=== PATIENT | female | born 1950 | race American Indian/Alaskan Native ===

== ENCOUNTER 2017-09-10 10:22 | Emergency (ER) | payer MEDICARE, OTHER ==
[2017-09-10] MEDS ORDERED: cefTRIAXone(*) 1 GM in NS 0.9% 50 ML* 50 ML IVPB ONE (11:36)
[2017-09-10] MEDS ORDERED: cefTRIAXone(*) 1 GM ADVAN/BAG ONE (11:49)
[2017-09-10 11:54] LABS: ABS Basophils 0 10^3/ul (0-0.2); ABS Eosinophils 0.2 10^3/ul (0-0.6); ABS Lymphocytes 1.2 10^3/ul (1.0-4.8); ABS Monocytes 0.3 10^3/ul (0-0.8); ABS Neutrophils 3.1 10^3/ul (1.5-7.7); ABS Nucleated RBC 0 10^3/ul; Eosinophil % 3.6 % (0-6); Hematocrit 34 % (35-47); Hemoglobin 11.5 g/dl (12.0-16.0); Lymphocyte % 24.9 % (25-47); Mean Corpuscular HGB Conc 34 g/dl (31-36); Mean Corpuscular Hemoglobin 30 pg (27-31); Mean Corpuscular Volume 87 fL (80-97); Mean Platelet Volume 7.6 um3 (7.4-10.4); Nucleated Red Blood Cells % 0.1; Platelet Count 211 10^3/ul (150-450); Red Blood Count 3.87 10^6/ul (4.00-5.40); Red Cell Distribution Width 15 % (10.5-15); White Blood Count 4.8 10^3/ul (3.5-10.8)
[2017-09-10 12:14] LABS: EGFR Non-African American 46.4 (>60)
--- NOTE | 2017-09-10 12:20 | ED ---
Lower Extremity - HPI Summary HPI Summary: This is leticia Alexander documenting for Dr. Deven Sanford MD. Patient is a 67 y/o F who presents to ED c/o right foot great toe swelling. She dropped a power tool drill on right great toe approximately 2 weeks ago with a laceration. Family took care of injury with first aid at home per nurses report. The swelling went away and seemed to have been healing, but 2 days ago the toe swelled again. Notes a blister on the bottom of right foot. Denies pain. - History of Current Complaint Chief Complaint: EDExtremityLower Stated Complaint: RT TOE INJURY Time Seen by Provider: 09/10/17 11:30 Hx Obtained From: Patient, Family/Data Entry Assistant Mechanism Of Injury: Direct Blow - Dropped power tool drill on toe Onset/Duration: Still Present Severity Currently: None Pain Intensity: 0 Pain Scale Used: 0-10 Numeric Location: Is Discrete @ - right great toe Associated Signs And Symptoms: Positive: Swelling - Allergies/Home Medications Allergies/Adverse Reactions: Allergies Allergy/AdvReac Type Severity Reaction Status Date / Time No Known Allergies Allergy Verified 09/10/17 10:32 PMH/Surg Hx/FS Hx/Imm Hx Endocrine/Hematology History: Reports: Hx Diabetes Neurological History: Reports: Hx Peripheral Neuropathy, Other Neuro Impairments /Disorders - Alzheimer's Dx Infectious Disease History: No Infectious Disease History: Denies: Traveled Outside the [place] in Last 30 Days - Family History Known Family History: Positive: Hypertension, Diabetes, Other - Cancer - Social History Hx Substance Use: Yes Substance Use Type: Reports: Marijuana - for pain Review of Systems Negative: Fever Positive: Edema - at right great toe Positive: Bruising All Other Systems Reviewed And Are Negative: Yes Physical Exam - Summary Physical Exam Summary: VITAL SIGNS: Reviewed. GENERAL: Patient is a well-developed and nourished female who is lying comfortable in the stretcher. Patient is not in any acute respiratory distress. HEAD AND FACE: No signs of trauma. No ecchymosis, hematomas or skull depressions. No sinus tenderness. EYES: PERRLA, EOMI x 2, No injected conjunctiva, no nystagmus. EARS: Hearing grossly intact. Ear canals and tympanic membranes are within normal limits. MOUTH: Oropharynx within normal limits. NECK: Supple, trachea is midline, no adenopathy, no JVD, no carotid bruit, no c- spine tenderness, neck with full ROM. CHEST: Symmetric, no tenderness at palpation LUNGS: Clear to auscultation bilaterally. No wheezing or crackles. CVS: Regular rate and rhythm, S1 and S2 present, no murmurs or gallops appreciated. ABDOMEN: Soft, non-tender. No signs of distention. No rebound no guarding, and no masses palpated. Bowel sounds are normal. EXTREMITIES: Left toe is swollen with some ecchymosis. Able to have normal sensation. No tenderness. FROM in all major joints, no cyanosis or clubbing. NEURO: Alert and oriented x 3. No acute neurological deficits. Speech is normal and follows commands. SKIN: Dry and warm Triage Information Reviewed: Yes Vital Signs On Initial Exam: Initial Vitals Temp Pulse Resp BP Pulse Ox 97.8 F 80 14 143/89 100 09/10/17 10:33 09/10/17 10:33 09/10/17 10:33 09/10/17 10:33 09/10/17 10:33 Vital Signs Reviewed: Yes Diagnostics - Vital Signs Vital Signs Temp Pulse Resp BP Pulse Ox 09/10/17 10:33 97.8 F 80 14 143/89 100 - Laboratory Lab Results: Lab Results 09/10/17 09/10/17 Range/Units 11:44 11:44 WBC 4.8 (3.5-10.8) 10^3/ul RBC 3.87 L (4.00-5.40) 10^6/ul Hgb 11.5 L (12.0-16.0) g/dl Hct 34 L (35-47) % MCV 87 (80-97) fL MCH 30 (27-31) pg MCHC 34 (31-36) g/dl RDW 15 (10.5-15) % Plt Count 211 (150-450) 10^3/ul MPV 7.6 (7.4-10.4) um3 Neut % (Auto) 65.6 (38-83) % Lymph % (Auto) 24.9 L (25-47) % [place] % (Auto) 5.3 (0-7) % Eos % (Auto) 3.6 (0-6) % Baso % (Auto) 0.6 (0-2) % Absolute Neuts (auto) 3.1 (1.5-7.7) 10^3/ul Absolute Lymphs (auto) 1.2 (1.0-4.8) 10^3/ul Absolute Monos (auto) 0.3 (0-0.8) 10^3/ul Absolute Eos (auto) 0.2 (0-0.6) 10^3/ul Absolute Basos (auto) 0 (0-0.2) 10^3/ul Absolute Nucleated RBC 0 10^3/ul Nucleated RBC % 0.1 Sodium 142 (135-145) mmol/L Potassium Pending Chloride 110 (101-111) mmol/L Carbon Dioxide 24 (22-32) mmol/L Anion Gap Pending BUN 20 (6-24) mg/dL Creatinine 1.17 H (0.51-0.95) mg/dL Est GFR ( Amer) 56.2 (>60) Est GFR (Non-Af Amer) 46.4 (>60) BUN/Creatinine Ratio 17.1 (8-20) Glucose 110 H (70-100) mg/dL Calcium 9.3 (8.6-10.3) mg/dL Total Bilirubin 1.00 (0.2-1.0) mg/dL AST Pending ALT 11 (7-52) U/L Alkaline Phosphatase 92 (34-104) U/L C-Reactive Protein 1.93 (<8.01) mg/L Total Protein 7.5 (6.4-8.9) g/dL Albumin 4.1 (3.2-5.2) g/dL Globulin 3.4 (2-4) g/dL Albumin/Globulin Ratio 1.2 (1-3) Result Diagrams: 09/10/17 11:44 09/10/17 11:44 Lab Statement: Any lab studies that have been ordered have been reviewed, and results considered in the medical decision making process. - Radiology Foot X-Ray Radiology Interpretation Completed By: Radiologist - 11:34 IMPRESSION: Nondisplaced nonarticular fracture first proximal phalanx. ED Physician reviewed this report. Re-Evaluation - Re-Evaluation First Eval Re-Evaluation Time: 12:28 Change: Unchanged - Pt says she feels good. Lower Extremity Course/Dx - Course Assessment/Plan: This patient is a 67-year-old female who presents to the emergency department with a chief complaint of having right toe pain. She reports that a couple days ago she dropped a drill on top of her toe and since then the patient is having pain and swelling. She also reports that today she has developed some erythema and she has history of diabetes. In the physical exam the toe is swollen has some erythema and tenderness palpation. She has good capillary refill and she has good sensation. X-ray of the right foot shows proximal phalanx fracture. He does the symptoms that the patient is developing some cellulitis therefore the patient was given Rocephin. I will discharge the patient home with a surgical shoe, a prescription for Bactrim and she declined any pain medications. She will follow-up with orthopedics in the next couple days. The patient and the patients daughter were instructed that if the pain increases the swelling increases and she has any other symptoms the patient should return immediately to the emergency department for further workup and management. The patient and the patients daughter understand and agree. - Diagnoses Provider Diagnoses: Toe fracture, right, Cellulitis Discharge - Sign-Out/Discharge Documenting (check all that apply): Patient Departure - Discharge - Discharge Plan Condition: Stable Disposition: HOME Prescriptions: Sulfamethox/Trimethoprim DS* [Bactrim DS 800/160 TAB*] 1 tab PO BID #20 tab Patient Education Materials: Toe Fracture (ED), Cellulitis (ED) Referrals: Jimenez Shanks MD [Medical Doctor] - 3 Days Additional Instructions: PLEASE RETURN TO ED FOR ANY NEW OR WORSENING SYMPTOMS.
--- NOTE | 2017-09-10 13:31 | RAD ---
Indication: RIGHT foot pain and edema following injury to the first digit one week ago. Previous osteomyelitis. Comparison: No relevant prior exams available on the [facility] PACS for comparison. Technique: AP, lateral, and oblique views LEFT foot. Report: Nondisplaced transverse fracture through the distal metaphysis of the first proximal phalanx. Negative for additional fracture or articular malalignment. 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 Moderate plantar fascia origin bone spur. Soft tissue swelling most prominent about the great toe and over the dorsum of the forefoot. IMPRESSION: #. Nondisplaced nonarticular fracture first proximal phalanx.
[2017-09-10 14:15] VITALS: BP 165/95
== END 2017-09-10 14:05 | disposition home or self-care (01) ==
LOC: ED 10:22
DX: S92.415A Nondisplaced fracture of proximal phalanx of left great toe, initial encounter for closed fracture (principal); W20.8XXA Other cause of strike by thrown, projected or falling object, initial encounter; Y92.9 Unspecified place or not applicable; E11.9 Type 2 diabetes mellitus without complications
CPT/HCPCS: 36415; 80053; 85025; 86140; 96365; 96366; 99283; J0696

== ENCOUNTER 2017-10-17 14:27 | Inpatient (IN) | payer MEDICARE, MEDICAID ==
[2017-10-17] MEDS ORDERED: diPHENhydraMINE IV* 50 MG/ML 1 ml VIAL (BENADRYL) IV PRN (16:03)
[2017-10-17] MEDS ORDERED: Ondansetron INJ* 2 MG/ML VIAL IV PRN (16:03)
[2017-10-17] MEDS ORDERED: Acetaminophen TAB* 325 MG PO PRN (16:03)
--- OUTSIDE RECORDS SUMMARY | 2017-10-17 16:07 | XMS REPORT ---
:1950 External Reference #:[id number] Author Organization [employer] Address [address] [place] [address] Phone [phone] Care Team Providers Name Role Phone Patient's Choice Primary Care Physician Unavailable Payers Type Date Identification Numbers Payment Provider Subscriber Medicare Primary Policy Number: [id number] Medicare Izabella Lopez PayID: [id number] [address] [place] [address] [facility] Policy Number: [id number] Medicaid Izabella Lopez Group Name: 1 1 [address] PayID: [id number] [place] [address] Problems Date Description Provider Status Onset: 09/12/2017 Cellulitis of right lower limb Jimenez Shanks MD Active Onset: 09/12/2017 Closed fracture of phalanx of foot Jimenez Shanks MD Active Social History Description No Information Available Allergies, Adverse Reactions, Alerts Date Description Reaction Status Severity Comments 09/12/2017 NKDA active Medications Medication Date Status Form Strength Qnty SIG Indications Ordering Provider Hydralazine HCL Active Tablets 50mg take one Unknown 000 tablet by mouth three times a day Ranitidine HCL Active Tablets 150mg take one Unknown 000 tablet by mouth twice a day Biotin Active Unknown 000 Vitamin E Active Unknown 000 Doxepin HCL Active Unknown 000 Sertraline HCL Active Unknown 000 Lisinopril Active Unknown 000 Reglan Active Unknown 000 Vitamin B-12 Active Unknown 000 Ondansetron Active Unknown 000 Aspercreme Active Unknown 000 Cholecalciferol Active Unknown 000 Cephalexin Hx Tablets 250mg 40tabs 1 tab L03.115 [facility] 018 - every six Dimitris, hours MD Ramires Vital Signs Date Vital Result Comment 10/03/2017 Height 62 inches 5'2" Weight 136.00 lb Heart Rate 72 /min BP Systolic 126 mmHg BP Diastolic 84 mmHg Body Temperature 97.3 F Pain Level 3 BMI (Body Mass Index) 24.9 kg/m2 09/19/2017 Height 62 inches 5'2" Weight 129.00 lb Heart Rate 72 /min Respiratory Rate 16 /min Body Temperature 97.0 F Pain Level 3 BMI (Body Mass Index) 23.6 kg/m2 09/12/2017 Height 62 inches 5'2" Weight 129.00 lb Heart Rate 68 /min Respiratory Rate 16 /min Body Temperature 96.6 F Pain Level 3 BMI (Body Mass Index) 23.6 kg/m2 Results Description No Information Procedures Description No Information Encounters Type Date Location Provider CPT E/M Dx Office Visit 09/19/2017 [place] [address] S92.411A 9:00a [facility] L03.115 W20.8xxA Office Visit 09/12/2017 8:30a [place] [address] S92.411A [facility] L03.115 Plan of Care 10/03/2017 - Jimenez Shanks MDS92.411D Disp fx of prox phalanx of r great toe, 7thDNew Xrays:MRI Lower Extremity Right W/OFollow up:after testing / imaging is pdghsarkyV32.115 Cellulitis of right lower limb
--- OUTSIDE RECORDS SUMMARY | 2017-10-17 16:07 | XMS REPORT ---
:1950 External Reference #:[id number] Author Organization [employer] Address [address] [facility] [address] [facility] [place] [address] Phone [phone] Care Team Providers Name Role Phone Patient's Choice Primary Care Physician Unavailable Payers Type Date Identification Numbers Payment Provider Subscriber Medicare Primary Policy Number: [id number] Medicare Izabella Lopez PayID: [id number] [address] [place] [address] [facility] Part B Policy Number: [id number] Medicaid Izabella Lopez Group Name: 1 1 [address] PayID: [id number] [place] [address] Problems Date Description Provider Status Onset: 09/12/2017 Cellulitis of right lower limb Jimenez Shanks MD Active Onset: 09/12/2017 Closed fracture of phalanx of foot Jimenez Shanks MD Active Social History Description No Information Available Allergies, Adverse Reactions, Alerts Date Description Reaction Status Severity Comments 09/12/2017 NKDA active Medications Medication Date Status Form Strength Qnty SIG Indications Ordering Provider Cephalexin Hx Tablets 250mg 40tabs 1 tab L03.115 Jimenez 018 - every six Dimitris, hours MD Ramires Hydralazine HCL Active Tablets 50mg take one [...] Active Unknown 000 Cholecalciferol Active Unknown 000 Vital Signs Date Vital Result Comment 09/19/2017 Height 62 inches 5'2" Weight 129.00 [...] Location Provider CPT E/M Dx Office Visit 09/12/2017 [place] [address] S92.411A 8:30a [facility] L03.115 Plan of Care Future Appointment(s):10/03/2017 9:15 am - Jimenez Shanks MD at [facility]09/19/2017 - Jimenez Shanks MDS92.411A Disp fx of proximal phalanx of right great toe, initNew Xrays:Toe Right PrwccK29.115 Cellulitis of right lower limbFollow up:Follow Up: 2 weeks
--- OUTSIDE RECORDS SUMMARY | 2017-10-17 16:07 | XMS REPORT ---
:1950 External Reference #:[id number] Author Organization [employer] Address [address] [place] [address] Phone [phone] Care Team Providers Name Role Phone Patient's Choice Primary Care Physician Unavailable Payers Type Date Identification Numbers Payment Provider Subscriber Medicare Primary Policy Number: [id number] Medicare Izabella Lopez PayID: [id number] [address] [place] [address] [facility] Part [facility] Policy Number: [id number] Medicaid Izabella Lopez Group Name: 1 1 [address] PayID: [id number] [place] [address] Problems Date Description Provider Status Onset: 09/12/2017 Closed fracture of phalanx of foot Jimenez Shanks MD Active Onset: 09/12/2017 Cellulitis of right lower limb Jimenez Shanks MD Active Onset: 10/17/2017 Acute osteomyelitis of ankle and/or foot Jimenez Shanks MD Active Social History [...] Hx Tablets 250mg 40tabs 1 tab L03.115 [facility] 018 - every six Dimitris, hours MD Ramires Vital Signs Date Vital Result Comment 10/17/2017 Height 62 inches 5'2" Weight 136.00 lb Heart Rate 76 /min Respiratory Rate 16 /min Body Temperature 98.5 F Pain Level 0 BMI (Body Mass Index) 24.9 kg/m2 10/03/2017 Height 62 inches 5'2" Weight 136.00 [...] Location Provider CPT E/M Dx Office Visit 10/03/2017 [place] [address] S92.411A 9:15a Of Eric L03.115 W20.8xxA Office Visit 09/19/2017 9:00a [place] [address] S92.411A Of Eric L03.115 W20.8xxA Office Visit 09/12/2017 8:30a [place] [address] S92.411A Of [facility] L03.115 Plan of Care Future Appointment(s):10/24/2017 2:15 pm - Jimenez Shanks MD at [facility]10/19/2017 3:00 pm - LESLIE Rollins at [facility]10/19/2017 3:00 pm - Jimenez Shanks MD at [facility].10/17/2017 - Jimenez Shanks, MDS92.411A Disp fx of proximal phalanx of right great toe, initM86.171 Other acute osteomyelitis, right ankle and footFollow up:Follow Up: 1 week postop
[2017-10-17 17:21] LABS: ABS Basophils 0 10^3/ul (0-0.2); ABS Eosinophils 0.1 10^3/ul (0-0.6); ABS Lymphocytes 2.1 10^3/ul (1.0-4.8); ABS Monocytes 0.6 10^3/ul (0-0.8); ABS Neutrophils 4.5 10^3/ul (1.5-7.7); ABS Nucleated RBC 0 10^3/ul; Eosinophil % 1.2 % (0-6); Hematocrit 32 % (35-47); Hemoglobin 11.2 g/dl (12.0-16.0); Lymphocyte % 28.3 % (25-47); Mean Corpuscular HGB Conc 35 g/dl (31-36); Mean Corpuscular Hemoglobin 30 pg (27-31); Mean Corpuscular Volume 85 fL (80-97); Mean Platelet Volume 7.5 um3 (7.4-10.4); Nucleated Red Blood Cells % 0; Platelet Count 142 10^3/ul (150-450); Red Blood Count 3.71 10^6/ul (4.00-5.40); Red Cell Distribution Width 14 % (10.5-15); White Blood Count 7.3 10^3/ul (3.5-10.8)
[2017-10-17 17:26] LABS: INR 0.94 (0.77-1.02)
[2017-10-17 17:36] LABS: EGFR Non-African American 32.1 (>60)
--- NOTE | 2017-10-17 17:45 | RAD ---
INDICATION: Preoperative evaluation. COMPARISON: There are no relevant prior studies available for comparison. TECHNIQUE: Dual-energy PA and lateral views of the chest were obtained. FINDINGS: The heart is within normal limits in size. Mediastinal and hilar contours appear within normal limits. The lungs are clear. There is blunting of the left costophrenic angle most consistent with pleural thickening less likely a small pleural effusion. IMPRESSION: BLUNTING OF THE LEFT COSTOPHRENIC ANGLE MOST CONSISTENT WITH PLEURAL THICKENING LESS LIKELY A SMALL PLEURAL EFFUSION.
[2017-10-17] MEDS: cefTRIAXone(*) 2 GM in NS 0.9% 100 ML* 100 ML IVPB SCH (18:10)
[2017-10-17] MEDS ORDERED: Dextrose 50% Syringe 50 ML* 25 GM/50 ML SYRINGE IV PUSH PRN (18:16)
[2017-10-17] MEDS ORDERED: Morphine INJ* 2 MG/ML 1 ML SYRINGE (TWO MG - NEW SYRINGE VERSION) IV PRN (18:22)
[2017-10-17] MEDS ORDERED: Potassium Chlor TAB* 20 MEQ TAB.ER PO ONE (18:56)
[2017-10-17] MEDS ORDERED: hydrALAZINE TAB* 25 MG PO SCH (21:00)
[2017-10-17] MEDS: Metoclopramide TAB* 10 MG PO SCH (21:29)
[2017-10-17] MEDS: Famotidine TAB* 20 MG PO SCH (21:30)
[2017-10-17] MEDS: Heparin VIAL(*) 5000 UNITS/ML VIAL (FIVE THOUSAND) SUBCUT SCH (21:30)
--- NOTE | 2017-10-17 21:33 | CONS ---
CC: Dr. Shanks * CONSULTATION REPORT: DATE OF CONSULT: 10/17/17 PATIENT OF: Dr. Jimenez Shanks, Orthopedic Department. REFERRED TO: Iva Frederick MD, attending hospitalist. REASON FOR CONSULT: Preoperative clearance and co-medical management. HISTORY OF PRESENT ILLNESS: Ms. Pack is a 67-year-old female who has a past medical history significant for hypertension, diabetes mellitus, and gastroparesis, who was seen in the emergency room back in 09/10/17 with complaints of right foot great toe swelling and pain. The patient had an injury 2 weeks prior to that presentation dating back to the first week of August when she accidentally dropped a heavy powered tool drill on her right great toe. She had some swelling and a small laceration that she said the family took care of it by doing basic first aid at home. She said that the swelling initially went away and seemed to be healing fine, but then 2 days later, her toes started to be swollen again with a small blister at the bottom of the right foot that continued to drain a clear fluid. She denied any pain, fever or purulent drainage back then. She had an x-ray of her right foot during her emergency room stay that revealed distal phalanx fracture of the right great toe as well as evidence of soft tissue edema consistent with cellulitis. The patient was given a dose of IV Rocephin in the emergency room and then was sent home on a course of Bactrim as an antibiotic and to follow up with Orthopedic in a few days. The patient was seen by the orthopedic provider at [facility] where she was examined and then electively had an MRI done since her swelling and pain continue to be present despite her antibiotic treatment. The patient had an MRI of her foot done on 10/11/17 that revealed diffuse soft tissue swelling involving the entire great toe of her right foot and findings were most consistent with osteomyelitis involving the proximal phalanx of the great toe with possible abscess formation. There was also an metallic artifact along the dorsal distal proximal phalanx that questioned the possibility of a foreign body. Given the finding of her MRI and the fact that her toe pain and swelling did not really improve over the period of 1 month, the decision was made for the patient to be admitted for IV antibiotics and to discuss the possibility of amputation versus debridement in the operating room on a later date. The patient herself reports doing relatively well overall. She had moved to [facility] about 6 months ago to live with her daughter, but originally was born in [place] and lived part of her life in [place] and most recently in [place], [place] prior to moving to [place], [place]. She had primary care physician in [place] that we will try to contact to get some medical records; however, she tells me that she has a history of hypertension, chronic kidney disease and diabetes mellitus for which she has been well controlled with her diet. She occasionally check her blood sugar at home and gives herself 10 units of regular insulin as needed if her sugar is elevated. She denies any history of coronary artery disease or heart attacks. She has never had any history of stroke or hyperlipidemia. Given her medical commodities, we were asked to see the patient to optimize her for possible surgical intervention and to perform preoperative clearance and possible co- medical management in the immediate postoperative period. PAST MEDICAL HISTORY: As mentioned above, significant for: 1. Hypertension. 2. Diabetes mellitus. 3. Gastroesophageal reflux disease. 4. Chronic kidney disease with baseline creatinine at 1.2 to 1.5 per the patient. 5. History of gastroparesis. 6. Anxiety and depression. PAST SURGICAL HISTORY: Significant for: 1. Tubal ligation. 2. Cholecystectomy. CURRENT MEDICATIONS: Her medications at home include: 1. Biotin 1000 mcg p.o. daily. 2. Calcitriol 0.5 mg p.o. daily. 3. Vitamin B12 100 mcg p.o. daily. 4. Doxepin 50 mg capsule p.o. daily. 5. Hydralazine 50 mg p.o. b.i.d. 6. Lidocaine cream 1 application daily as needed for hemorrhoidal pain. 7. Lisinopril 10 mg p.o. daily. 8. Reglan 10 mg p.o. 4 times a day. 9. Zofran 4 mg p.o. daily as needed for nausea. 10. Zantac 150 mg p.o. b.i.d. 11. Zoloft 150 mg p.o. daily. 12. Multivitamin 1 tablet p.o. daily. ALLERGIES: She has no known drug allergies. FAMILY HISTORY: Reviewed and noncontributory. SOCIAL HISTORY: The patient is a nonsmoker, who smoked for approximately 50 years back as a teenager. She denies alcohol intake. She admits to smoking marijuana on occasions to improve her gastroparesis and intermittent nausea and increase her appetite. She is a recent . 2 months ago and recently moved to [facility] 6 months ago from [place] where she lived for number of years. She lists her daughter as healthcare proxy and she wishes to be a full code. REVIEW OF SYSTEMS: See HPI. Otherwise, 14 points review of systems were examined and were essentially negative. PHYSICAL EXAM: General: She is a pleasant, older female, slim, but healthy appearing and in no acute distress or discomfort at the time of consultation. Vitals: Revealed a temperature of 97.6, pulse of 89, respirations of 16 with O2 sat of 99% on room air, blood pressure slightly low at 84/63. HEENT: Head is normocephalic, atraumatic. Sclerae anicteric. PERRLA. EOMs intact. Oropharynx is pink and moist. Neck: Supple. Trachea midline. No cervical adenopathy, thyromegaly, or JVD. Lungs: Clear to auscultation bilaterally. Heart: Regular rate and rhythm. Normal S1 and S2 without rubs, murmurs, or gallops. Back: With normal curvature and no CVA tenderness. Breast Exam: Deferred at this time. Abdomen: Soft, nontender, and nondistended. No hernias , masses, or hepatosplenomegaly. Extremities: Without cyanosis, clubbing, or edema. Examination of the right foot revealed moderate swelling of the big toe extending to the head of the first metatarsal. There is mild tenderness on the dorsal and ventral aspect. There are no open blisters or wounds with no active draining or bleeding noted. There is large area of ecchymosis involving the entire the great toe, but no evidence of crepitus or dry gangrene. Her pedal pulse is 2+ and sensation is intact distally. Neurologic: She is awake, alert , and oriented. Tongue is midline. Motor with equal handgrip bilaterally and sensation is intact throughout. Rectal Exam: Deferred at this time. DIAGNOSTIC STUDIES/LAB DATA: CBC done today with white count of 7000, hemoglobin of 11.2, hematocrit of 32, platelets of 142. Her ESR is pending. Chemistry panel: Sodium 134, potassium 3.1, chloride 101, CO2 23, BUN 27, creatinine 1.6. Her glucose was 184, calcium 8.3. LFTs within normal limits and C-reactive protein normal. ACCESSORY DIAGNOSTIC DATA: As mentioned above, MRI was done on 10/11/17 revealing evidence consistent with osteomyelitis involving the majority of the proximal phalanx of the great toe on the right side with possible abscess formation as well as edema and possible metallic artifact of the dorsal phalanx raising the possibility of a foreign body. IMPRESSION: A 67-year-old female with a past medical history significant for hypertension, diabetes mellitus, gastroparesis and anxiety, who had a traumatic injury to her right great toe approximately a month ago that was treated for cellulitis as an outpatient and unfortunately failed her treatment, who was seen for followup by Orthopedic today and had an MRI last week that showed evidence of osteomyelitis involving the majority of her right great toe and the patient will be admitted under orthopedic services for the following. ASSESSMENT AND PLAN: 1. Right great toe osteomyelitis. Management is per orthopedic team. The patient was started on IV antibiotics using 2 g Ancef every 24 hours. She appears to be afebrile and shows no signs of sepsis or dry gangrene of the toe. It appears to be that she will benefit from going to the operating room more than likely on anticipating possibly amputation of the right great toe and debridement. Again, she understands and wishes to proceed with surgery and we will refer the consent to the orthopedic team and the operating room arrangement as well. 2. Hypertension. She appears to be hypotensive at this time. I will hold her hydralazine and lisinopril and keep monitoring her closely. 3. Diabetes mellitus. The patient appears to control her diabetes at home mostly by diet modification with occasional random glucose checks and insulin intake. We will continue to cover her with lispro sliding scale and do glucose checks q.a.c. and q.h.s. to optimize her glycemic control. 4. Gastroesophageal reflux disease. We will continue her ranitidine treatment. 5. History of gastroparesis. I will continue her Reglan as prescribed. 6. DVT prophylaxis. Based on her age, the patient is high risk and will be covered with heparin for the time being. 7. Code status. She is a full code. TIME SPENT: Approximately 50 minutes were spent consulting on this patient. I have discussed with her all the possible comorbidities and the risk of her surgery. We also checked her revised cardiac risk index and she appears to have a risk percentage of 0.9% for perioperative cardiac event, which makes her a low risk for surgery. We will continue to optimize her blood pressure and glycemic control. I will check an EKG and chest x-ray for preoperative clearance and will follow her up accordingly. Thank you for this consultation. CRUZ HARRIS [id number]/[facility] #: [id number] MORRIS
[2017-10-17] MEDS: Insulin LISPRO* 1 UNITS UNIT SUBCUT SCH (21:34)
[2017-10-18] MEDS: Heparin VIAL(*) 5000 UNITS/ML VIAL (FIVE THOUSAND) SUBCUT SCH ×3 (06:15→21:24)
[2017-10-18 06:20] LABS: ABS Basophils 0 10^3/ul (0-0.2); ABS Eosinophils 0.3 10^3/ul (0-0.6); ABS Lymphocytes 2.6 10^3/ul (1.0-4.8); ABS Monocytes 0.5 10^3/ul (0-0.8); ABS Neutrophils 2.9 10^3/ul (1.5-7.7); ABS Nucleated RBC 0 10^3/ul; Eosinophil % 5.1 % (0-6); Hematocrit 30 % (35-47); Hemoglobin 10.4 g/dl (12.0-16.0); Lymphocyte % 40.9 % (25-47); Mean Corpuscular HGB Conc 35 g/dl (31-36); Mean Corpuscular Hemoglobin 30 pg (27-31); Mean Corpuscular Volume 85 fL (80-97); Mean Platelet Volume 7.8 um3 (7.4-10.4); Nucleated Red Blood Cells % 0.1; Platelet Count 129 10^3/ul (150-450); Red Cell Distribution Width 14 % (10.5-15); White Blood Count 6.3 10^3/ul (3.5-10.8)
[2017-10-18 06:35] LABS: EGFR Non-African American 38.4 (>60)
[2017-10-18] MEDS: Insulin LISPRO* 1 UNITS UNIT SUBCUT SCH ×4 (08:32→21:02)
[2017-10-18] MEDS: Metoclopramide TAB* 10 MG PO SCH ×4 (08:33→21:24)
[2017-10-18] MEDS: Famotidine TAB* 20 MG PO SCH (08:33)
[2017-10-18] MEDS: Calcitriol CAP* 0.25 MCG PO SCH (08:34)
[2017-10-18] MEDS: CMC:Doxepin (NF) 25 MG CAP PO SCH (08:34)
[2017-10-18] MEDS: Sertraline* 100 MG TAB PO SCH (08:34)
[2017-10-18] MEDS: hydrALAZINE TAB* 25 MG PO SCH ×2 (08:35→21:24)
[2017-10-18] MEDS: Lisinopril TAB* 10 MG PO SCH (08:35)
[2017-10-18] MEDS ORDERED: Cyanocobalamin TAB* 500 MCG ONE (08:37)
[2017-10-18] MEDS: Cyanocobalamin TAB* 500 MCG PO SCH (08:39)
[2017-10-18] MEDS ORDERED: Cyanocobalamin TAB* 500 MCG PO SCH (09:00)
--- NOTE | 2017-10-18 12:19 | PN ---
Progress Note - Progress Note Date of Service: 10/18/17 SOAP: Subjective: []Patient seen and examined at bedside. She has no complaints today and denies fever, chills, right great toe pain. Objective: []General: Well appearing, NAD RLE: Right great toe skin intact, mild edema and purple discoloration. No erythema of toe and no proximal tracking erythema. Nontender to gentle palpation today. Cap refill less than two seconds distally. DP2+. Calves supple and nontender without erythema, edema or palpable cords. Assessment: []Right great toe osteomyelitis Plan: []OR tomorrow with Dr Shanks for right great toe amputation, NPO at midnight, hold heparin at midnight for OR tomorrow WBAT Vital Signs Temp 98.2 F 10/18/17 07:23 Pulse 73 10/18/17 07:23 Resp 16 10/18/17 08:35 BP 93/59 10/18/17 07:23 Pulse Ox 97 10/18/17 07:23 Intake & Output 10/17/17 10/18/17 10/18/17 18:59 06:59 18:59 Intake Total 240 250 Output Total 500 Balance 240 -250 Weight 125 lb Intake: Oral 240 250 Output: Urine 500 Laboratory Last Values WBC 6.3 10^3/ul (3.5-10.8) 10/18/17 05:41 RBC 3.50 10^6/ul (4.00-5.40) L 10/18/17 05:41 Hgb 10.4 g/dl (12.0-16.0) L 10/18/17 05:41 Hct 30 % (35-47) L 10/18/17 05:41 MCV 85 fL (80-97) 10/18/17 05:41 MCH 30 pg (27-31) 10/18/17 05:41 MCHC 35 g/dl (31-36) 10/18/17 05:41 RDW 14 % (10.5-15) 10/18/17 05:41 Plt Count 129 10^3/ul (150-450) L 10/18/17 05:41 MPV 7.8 um3 (7.4-10.4) 10/18/17 05:41 Neut % (Auto) 45.6 % (38-83) 10/18/17 05:41 Lymph % (Auto) 40.9 % (25-47) 10/18/17 05:41 Avery % (Auto) 7.9 % (0-7) H 10/18/17 05:41 Eos % (Auto) 5.1 % (0-6) 10/18/17 05:41 Baso % (Auto) 0.5 % (0-2) 10/18/17 05:41 Absolute Neuts (auto) 2.9 10^3/ul (1.5-7.7) 10/18/17 05:41 Absolute Lymphs (auto) 2.6 10^3/ul (1.0-4.8) 10/18/17 05:41 Absolute Monos (auto) 0.5 10^3/ul (0-0.8) 10/18/17 05:41 Absolute Eos (auto) 0.3 10^3/ul (0-0.6) 10/18/17 05:41 Absolute Basos (auto) 0 10^3/ul (0-0.2) 10/18/17 05:41 Absolute Nucleated RBC 0 10^3/ul 10/18/17 05:41 Nucleated RBC % 0.1 10/18/17 05:41 ESR 0 mm/Hr (0-40) 10/17/17 17:02 INR (Anticoag Therapy) 0.94 (0.77-1.02) 10/17/17 17:02 Sodium 135 mmol/L (135-145) 10/18/17 05:41 Potassium 4.1 mmol/L (3.5-5.0) 10/18/17 05:41 Chloride 104 mmol/L (101-111) 10/18/17 05:41 Carbon Dioxide 25 mmol/L (22-32) 10/18/17 05:41 Anion Gap 6 mmol/L (2-11) 10/18/17 05:41 BUN 27 mg/dL (6-24) H 10/18/17 05:41 Creatinine 1.38 mg/dL (0.51-0.95) H 10/18/17 05:41 Est GFR ( Amer) 46.4 (>60) 10/18/17 05:41 Est GFR (Non-Af Amer) 38.4 (>60) 10/18/17 05:41 BUN/Creatinine Ratio 19.6 (8-20) 10/18/17 05:41 Glucose 99 mg/dL (70-100) 10/18/17 05:41 POC Glucose (mg/dL) 141 mg/dL (70-100) H 10/18/17 11:42 Calcium 8.1 mg/dL (8.6-10.3) L 10/18/17 05:41 Total Bilirubin 0.90 mg/dL (0.2-1.0) 10/17/17 17:02 AST 15 U/L (13-39) 10/17/17 17:02 ALT 12 U/L (7-52) 10/17/17 17:02 Alkaline Phosphatase 69 U/L (34-104) 10/17/17 17:02 C-Reactive Protein < 1.00 mg/L (<8.01) 10/17/17 17:02 Total Protein 6.1 g/dL (6.4-8.9) L 10/17/17 17:02 Albumin 3.7 g/dL (3.2-5.2) 10/17/17 17:02 Globulin 2.4 g/dL (2-4) 10/17/17 17:02 Albumin/Globulin Ratio 1.5 (1-3) 10/17/17 17:02
--- NOTE | 2017-10-18 12:54 | CONS ---
DATE OF CONSULTATION: 10/18/2017. REQUESTING PHYSICIAN: Dr. Shanks. CONSULTING SERVICE: Infectious Disease. REASON FOR CONSULTATION: Great toe infection. IMPRESSION: 1. Right great toe acute osteomyelitis in the setting of recent open fracture of the proximal phalanx, could be polymicrobial, usually skin doe, i.e. staph or streptococcus. Not much in the way of a soft tissue infection with it. 2. Diabetes with neuropathy. 3. Gastroparesis. RECOMMENDATIONS: Continue Ceftriaxone 2 gm daily. Given that she is to have a great toe amputation, I do not think she will have need for long-term IV antibiotics. Will await the operative cultures. HISTORY OF PRESENT ILLNESS: This 67-year-old woman with diabetes neuropathy who about five or six weeks ago dropped a heavy power tool on her right great toe, had significant pain and was seen in the ER where she had an x-ray that showed a proximal phalanx fracture. She had some antibiotics. She had a cut over the fracture area which has eventually healed up. She followed with Dr. Shanks and was prescribed Keflex because of swelling and pain that continued. She did not have a whole lot of improvement, so she had an MRI with findings as noted above. She was admitted for antibiotics which she started overnight and is tolerating well. She is to have a great toe amputation tomorrow. PAST MEDICAL HISTORY: 1. Diabetes with peripheral neuropathy. 2. Gastroparesis. 3. Hypertension. 4. Gastroesophageal reflux disease. 5. Chronic kidney disease. 6. Anxiety. 7. Depression. 8. Status post tubal ligation. 9. Status post cholecystectomy. MEDICATIONS: Tylenol, Calcitriol, Doxepin, Famotidine, Heparin subcutaneous injection, Hydralazine, insulin Lispro, Lisinopril, Reglan, Oxycodone as needed , potassium, Ceftriaxone 2 gm a day, Sertraline. ALLERGIES: No known drug allergies. FAMILY HISTORY: No recurrent infections. SOCIAL HISTORY: She lives in [place] with her family. She has no sick contacts. REVIEW OF SYSTEMS: All negative, except as noted above in the history of present illness to a 14 point review. PHYSICAL EXAM: General: She is awake, not in distress. Vital Signs: Temperature 37, heart rate 70, respiratory rate 16, blood pressure 93/59, oxygen saturation 97 percent on room air. Neurologic: She is oriented times three, follows all commands. She has decreased sensation to light touch in both feet. HEENT: There is no conjunctival hemorrhage. Oropharynx without lesions. Neck: Supple without mass. Heart: Regular rate and rhythm without murmurs, rubs, or gallops. Lungs: Clear to auscultation bilaterally. Abdomen : Soft, nontender, nondistended. There are bowel sounds present. Skin: There is no rash or splinter hemorrhage. Musculoskeletal: There is no spine tenderness to palpation. Right great toe: There is diffuse edema, tenderness, dark discoloration. There is no fluctuance. There is 2+ dorsalis pedis pulse. LABORATORY DATA: Creatinine 1.38, CRP is less than 1, white blood cell count 6 , hemoglobin 10, platelets 129. Please see impressions and recommendations as outlined above which I have discussed with CRUZ Fernández. Thank you for asking me to see Ms. Pack in consultation. [id number]/[facility] #: [id number] MTDD
[2017-10-18] MEDS ORDERED: NS 0.9% 500 ML* 500 ML IV ONE ×2 (12:55→12:57)
[2017-10-18] MEDS: cefTRIAXone(*) 2 GM in NS 0.9% 100 ML* 100 ML IVPB SCH (16:28)
--- NOTE | 2017-10-18 18:32 | PN ---
Subjective Date of Service: 10/18/17 Interval History: Mrs. Cuevas reports doing well. She denies chest pain, SOB, palpitations, fever or chills. I was called earlier for low BP, her meds has been on hold, given a bolus of 1,000 ml NS. Noted to have 4-5 blankets while sleeping, denies chills. Appetite good, denies nausea or vomiting. Labs, CXR and EKG reviewed. Seen by orthopedic team, plans for surgery tomorrow. She has no complaints today. Family History: Unchanged from Admission Social History: Unchanged from Admission Past Medical History: Unchanged from Admission Objective Active Medications: Acetaminophen (Tylenol Tab*) 650 mg PO Q6H PRN PRN Reason: PAIN OR TEMPERATURE Calcitriol (Rocaltrol Cap*) 0.5 mcg PO DAILY [facility] Last Admin: 10/18/17 08:34 Dose: 0.5 mcg Cyanocobalamin (Vitamin B12 Tab*) 250 mcg PO DAILY [facility] Last Admin: 10/18/17 08:39 Dose: 250 mcg Dextrose (D50w Syringe 50 Ml*) 12.5 gm IV PUSH .FOR FS < 60 - SS PRN PRN Reason: FS < 60 Diphenhydramine HCl (Benadryl Iv*) 25 mg IV Q6H PRN PRN Reason: PRURITIS Doxepin HCl (Doxepin (Nf)) 50 mg PO DAILY [facility] Last Admin: 10/18/17 08:34 Dose: 50 mg Famotidine (Pepcid Tab*) 20 mg PO DAILY [facility] Last Admin: 10/18/17 08:33 Dose: 20 mg Heparin Sodium (Porcine) (Heparin Vial(*)) 5,000 units SUBCUT Q8HR [facility] Stop: 10/18/17 23:59 Last Admin: 10/18/17 13:38 Dose: 5,000 units Hydralazine HCl (Apresoline Tab*) 50 mg PO BID [facility] Last Admin: 10/18/17 08:35 Dose: Not Given Ceftriaxone Sodium 2 gm/ (Sodium Chloride) 100 mls @ 200 mls/hr IVPB Q24H [facility] Last Admin: 10/18/17 16:28 Dose: 200 mls/hr Lactated Ringer's (Lactated Ringers 1000 Ml Bag*) 1,000 mls @ 75 mls/hr IV PER RATE [facility] Last Admin: 10/18/17 15:34 Dose: 75 mls/hr Insulin Human Lispro (Humalog*) 0 units SUBCUT ACHS [facility]; Protocol Last Admin: 10/18/17 16:26 Dose: Not Given Lisinopril (Prinivil Tab*) 10 mg PO DAILY [facility] Last Admin: 10/18/17 08:35 Dose: Not Given Metoclopramide HCl (Reglan Tab*) 5 mg PO QID [facility] Last Admin: 10/18/17 16:51 Dose: 5 mg Morphine Sulfate (Morphine Inj ((Syringe))*) 2 mg IV Q4H PRN PRN Reason: PAIN - SEVERE Ondansetron HCl (Zofran Inj*) 4 mg IV Q6H PRN PRN Reason: NAUSEA Last Admin: 10/18/17 10:06 Dose: 4 mg Oxycodone/Acetaminophen (Percocet 5/325 Tab*) 1 tab PO Q4H PRN PRN Reason: PAIN Sertraline HCl (Zoloft*) 150 mg PO DAILY [facility] Last Admin: 10/18/17 08:34 Dose: 150 mg Vital Signs - 8 hr 10/18/17 10/18/17 10/18/17 11:59 12:49 15:21 Temperature 98.8 F 98.8 F Pulse Rate 79 78 84 Respiratory 16 16 Rate Blood Pressure 80/37 82/44 104/60 (mmHg) O2 Sat by Pulse 98 Oximetry Oxygen Devices in Use Now: None Appearance: Appears comfortable and in NAD Eyes: No Scleral Icterus, PERRLA Ears/Nose/Mouth/Throat: Clear Oropharnyx, Mucous Membranes Moist Neck: NL Appearance and Movements; NL JVP, Trachea Midline Respiratory: Symmetrical Chest Expansion and Respiratory Effort, Clear to Auscultation Cardiovascular: NL Sounds; No Murmurs; No JVD, RRR Abdominal: NL Sounds; No Tenderness; No Distention Extremities: No Edema Neurological: Alert and Oriented x 3, NL Sensation, NL Muscle Strength and Tone Nutrition: Taking PO's Result Diagrams: 10/18/17 05:41 10/18/17 05:41 Additional Lab and Data: . Microbiology and Other Data: . Diagnostic Imaging: Patient Name: BRIANA CUEVAS Medical Record#: [id number] Ordering Physician: Wanda ARROYO Acct.#: [id number] : 1950 Age: 67 Sex: F Location: SURGICAL STAY UNIT Exam Date: 10/17/17 1615 ADM Status: ADM IN Order Information: CHEST PA & LAT 2 VWS Accession Number: [id number] CPT: 12885 INDICATION: Preoperative evaluation. IMPRESSION: BLUNTING OF THE LEFT COSTOPHRENIC ANGLE MOST CONSISTENT WITH PLEURAL THICKENING LESS LIKELY A SMALL PLEURAL EFFUSION. <Electronically signed by Miguel Olsen MD in OV> 10/17/17 2 EKG Data: EKG INTERPRETATION ECG Report Patient Name BRIANA CUEVAS Birthdate 1950 Sex F Order Number [id number] Date of ECG 10/17/2017 19:01:15 Interpretation Sinus rhythm.normal P axis, V-rate 60- 99 Borderline T wave abnormalities.T/QRS ratio < 1/20 or flat T Prolonged QT interval.QTc >500mS - ABNORMAL ECG - Assess/Plan/Problems-Billing Assessment: A 67 y/o female with PMH HTN, DM, anxiety and gastroparesis, who was admitted from orthopedic office with right great toe osteomylitis, awaiting surgery tomorrow. - Patient Problems (1) Foot osteomyelitis, right Current Visit: Yes Status: Acute Comment: - Management per orthopedic team - NPO past midnight - Right great toe amputation tomorrow, ? primary closure vs wound vac - ID consult appreciated, continue IV antibiotics (2) Hypertension Current Visit: Yes Status: Acute Comment: - Has been hypotensive, without tachycardia or other evidence of sepsis - BP meds on hold - IVF bolus and at continous rate after (3) Diabetes mellitus Current Visit: Yes Status: Acute Comment: - Continue Lispro coverage per sliding scale (4) Anxiety Current Visit: Yes Status: Acute Comment: - Continue Zoloft (5) Gastroparesis Current Visit: Yes Status: Acute Comment: - Continue Reglan and Zofran as needed. - Stable (6) DVT prophylaxis Current Visit: Yes Status: Acute Comment: - SubQ Heparin, on hold past midnight for surgery (7) Full code status Current Visit: Yes Status: Acute Status and Disposition: Inpatient. Anticipate discharge per ortho team when medically stable.
[2017-10-19 06:07] LABS: ABS Basophils 0 10^3/ul (0-0.2); ABS Eosinophils 0.3 10^3/ul (0-0.6); ABS Lymphocytes 2.1 10^3/ul (1.0-4.8); ABS Monocytes 0.4 10^3/ul (0-0.8); ABS Neutrophils 3.1 10^3/ul (1.5-7.7); ABS Nucleated RBC 0 10^3/ul; Eosinophil % 5.8 % (0-6); Hematocrit 28 % (35-47); Hemoglobin 9.8 g/dl (12.0-16.0); Lymphocyte % 35.4 % (25-47); Mean Corpuscular HGB Conc 35 g/dl (31-36); Mean Corpuscular Hemoglobin 30 pg (27-31); Mean Corpuscular Volume 86 fL (80-97); Mean Platelet Volume 7.7 um3 (7.4-10.4); Nucleated Red Blood Cells % 0; Platelet Count 137 10^3/ul (150-450); Red Blood Count 3.25 10^6/ul (4.00-5.40); Red Cell Distribution Width 14 % (10.5-15)
[2017-10-19 06:11] LABS: INR 0.82 (0.77-1.02)
[2017-10-19 06:25] LABS: EGFR Non-African American 45.5 (>60)
[2017-10-19] MEDS: Insulin LISPRO* 1 UNITS UNIT SUBCUT SCH ×4 (08:01→21:05)
[2017-10-19] MEDS: Lisinopril TAB* 10 MG PO SCH (08:15)
[2017-10-19] MEDS: CMC:Doxepin (NF) 25 MG CAP PO SCH (09:31)
[2017-10-19] MEDS: Metoclopramide TAB* 10 MG PO SCH ×4 (09:31→20:55)
[2017-10-19] MEDS: Sertraline* 100 MG TAB PO SCH (09:31)
[2017-10-19] MEDS: hydrALAZINE TAB* 25 MG PO SCH ×2 (09:31→20:55)
[2017-10-19] MEDS: Calcitriol CAP* 0.25 MCG PO SCH (09:31)
[2017-10-19] MEDS: Famotidine TAB* 20 MG PO SCH (09:31)
[2017-10-19] MEDS: Cyanocobalamin TAB* 500 MCG PO SCH (09:32)
[2017-10-19] MEDS ORDERED: Morphine VIAL* 10 MG/ML 1 ML VIAL ONE (14:11)
[2017-10-19] MEDS ORDERED: Ondansetron INJ* 2 MG/ML VIAL ONE (15:12)
[2017-10-19] MEDS ORDERED: Lidocaine 2% PF * 5 ML VIAL ONE (15:12)
[2017-10-19] MEDS ORDERED: Propofol* 10 MG/ML 20 ML BTL IV PUSH ONE (15:12)
[2017-10-19] MEDS ORDERED: Ketorolac INJ* 30 MG/ML 1 ML VIAL ONE (15:12)
[2017-10-19] MEDS ORDERED: KETAMINE HCL* 50 MG/ML 10 ML VIAL ONE (15:13)
[2017-10-19] MEDS ORDERED: Midazolam* 1 MG/ML 5 ML VIAL (5 MG) ONE (15:13)
[2017-10-19] MEDS ORDERED: fentaNYL* 50 MCG/ML 2 ML VIAL (100 MCG VIAL) ONE (15:13)
[2017-10-19] MEDS ORDERED: Bupivacaine 0.25% SDV PF* 10 ML VIAL INJ ONE ×2 (15:24→15:25)
[2017-10-19] MEDS ORDERED: cefTRIAXone(*) 2 GM ADDV.VIAL IVPB ONE (15:35)
[2017-10-19] MEDS ORDERED: EPHEDrine (Pressors)* 50 MG/ML VIAL ONE (16:01)
[2017-10-19] MEDS ORDERED: Naloxone* 0.4 MG/ML 1 ML VIAL IV PRN (16:13)
[2017-10-19] MEDS ORDERED: fentaNYL* 50 MCG/ML 2 ML VIAL (100 MCG VIAL) IV PRN (16:13)
[2017-10-19] MEDS ORDERED: Ondansetron INJ* 2 MG/ML VIAL IV PRN (16:13)
--- NOTE | 2017-10-19 16:33 | PN ---
Subjective Date of Service: 10/19/17 Interval History: Patient was seen and examined at bedside earlier today. Reports doing well, anxious to get her surgery done, so she can eat. Denies chest pain, SOB, fever or chills. Plans for right great toe amputation this afternoon. Family History: Unchanged from Admission Social History: Unchanged from Admission Past Medical History: Unchanged from Admission Objective Active Medications: Acetaminophen (Tylenol Tab*) 650 mg PO Q6H PRN PRN Reason: PAIN OR TEMPERATURE Calcitriol (Rocaltrol Cap*) 0.5 mcg PO DAILY [facility] Last Admin: 10/19/17 09:31 Dose: 0.5 mcg Cyanocobalamin (Vitamin B12 Tab*) 250 mcg PO DAILY [facility] Last Admin: 10/19/17 09:32 Dose: 250 mcg Dextrose (D50w Syringe 50 Ml*) 12.5 gm IV PUSH .FOR FS < 60 - SS PRN PRN Reason: FS < 60 Diphenhydramine HCl (Benadryl Iv*) 25 mg IV Q6H PRN PRN Reason: PRURITIS Doxepin HCl (Doxepin (Nf)) 50 mg PO DAILY [facility] Last Admin: 10/19/17 09:31 Dose: 50 mg Famotidine (Pepcid Tab*) 20 mg PO DAILY [facility] Last Admin: 10/19/17 09:31 Dose: 20 mg Fentanyl Citrate (Fentanyl*) 25 mcg IV Q5M PRN PRN Reason: PAIN - MODERATE Hydralazine HCl (Apresoline Tab*) 50 mg PO BID [facility] Last Admin: 10/19/17 09:31 Dose: 50 mg Ceftriaxone Sodium 2 gm/ (Sodium Chloride) 100 mls @ 200 mls/hr IVPB Q24H [facility] Last Admin: 10/18/17 16:28 Dose: 200 mls/hr Lactated Ringer's (Lactated Ringers 1000 Ml Bag*) 1,000 mls @ 75 mls/hr IV PER RATE [facility] Last Admin: 10/19/17 05:44 Dose: 75 mls/hr Insulin Human Lispro (Humalog*) 0 units SUBCUT ACHS [facility]; Protocol Last Admin: 10/19/17 16:12 Dose: Not Given Metoclopramide HCl (Reglan Tab*) 5 mg PO QID [facility] Last Admin: 10/19/17 13:03 Dose: Not Given Morphine Sulfate (Morphine Inj ((Syringe))*) 2 mg IV Q4H PRN PRN Reason: PAIN - SEVERE Last Admin: 10/19/17 14:19 Dose: 2 mg Naloxone HCl (Narcan*) 0.08 mg IV Q2M PRN PRN Reason: severe induced resp depression Ondansetron HCl (Zofran Inj*) 4 mg IV Q6H PRN PRN Reason: NAUSEA Last Admin: 10/18/17 10:06 Dose: 4 mg Ondansetron HCl (Zofran Inj*) 4 mg IV ONCE PRN PRN Reason: NAUSEA/VOMITING Oxycodone/Acetaminophen (Percocet 5/325 Tab*) 1 tab PO Q4H PRN PRN Reason: PAIN Sertraline HCl (Zoloft*) 150 mg PO DAILY [facility] Last Admin: 10/19/17 09:31 Dose: 150 mg Vital Signs - 8 hr 10/19/17 10/19/17 10/19/17 11:24 12:02 14:19 Temperature 98.4 F Pulse Rate 97 Respiratory 14 16 Rate Blood Pressure 72/27 124/68 (mmHg) O2 Sat by Pulse 95 Oximetry Oxygen Devices in Use Now: None Appearance: Appears comfortable and in NAD. Eyes: No Scleral Icterus, PERRLA Ears/Nose/Mouth/Throat: Clear Oropharnyx, Mucous Membranes Moist Neck: NL Appearance and Movements; NL JVP, Trachea Midline Respiratory: Symmetrical Chest Expansion and Respiratory Effort, Clear to Auscultation Cardiovascular: NL Sounds; No Murmurs; No JVD, RRR Abdominal: NL Sounds; No Tenderness; No Distention Extremities: No Edema Skin: No Rash or Ulcers Neurological: Alert and Oriented x 3 Result Diagrams: 10/19/17 05:41 10/19/17 05:41 Additional Lab and Data: . Microbiology and Other Data: . Diagnostic Imaging: . EKG Data: . Assess/Plan/Problems-Billing Assessment: A 67 y/o female with PMH HTN, DM, anxiety and gastroparesis, who was admitted from orthopedic office with right great toe osteomylitis, awaiting surgery scheduled for this afternoon. - Patient Problems (1) Foot osteomyelitis, right Current Visit: Yes Status: Acute Comment: - Management per orthopedic team - NPO past midnight - Right great toe amputation today, ? primary closure vs wound vac - ID consult appreciated, continue IV antibiotics (2) Hypertension Current Visit: Yes Status: Acute Comment: - Has been hypotensive, without tachycardia or other evidence of sepsis - BP improved today - BP meds on hold - IVF bolus and at continous rate after (3) Diabetes mellitus Current Visit: Yes Status: Acute Comment: - Continue Lispro coverage per sliding scale (4) Anxiety Current Visit: Yes Status: Acute Comment: - Continue Zoloft (5) Gastroparesis Current Visit: Yes Status: Acute Comment: - Continue Reglan and Zofran as needed. - Stable (6) DVT prophylaxis Current Visit: Yes Status: Acute Comment: - SubQ Heparin, on hold past midnight for surgery (7) Full code status Current Visit: Yes Status: Acute Status and Disposition: Inpatient. Anticipate discharge per ortho team when medically stable.
[2017-10-19] MEDS: cefTRIAXone(*) 2 GM in NS 0.9% 100 ML* 100 ML IVPB SCH (18:14)
[2017-10-19] MEDS ORDERED: Morphine INJ* 2 MG/ML 1 ML SYRINGE (TWO MG - NEW SYRINGE VERSION) IV PRN (18:39)
--- NOTE | 2017-10-19 19:56 | OP ---
Operative Report - Blank - Operative Report Date of Operation: 10/19/17 Note: PATIENT: Izabella Lopez DATE OF : 1950 DATE OF SURGERY: 10/19/2017 SURGEON: Jimenez Shanks MD SCIENTIST: CRUZ Fernández, whos assistance was necessary for positioning, retraction, help with instrumentation, and closure. ANESTHESIOLOGIST: Dr. Rodrigues PREOPERATIVE DIAGNOSIS: Right great toe toe osteomyelitis POSTOPERATIVE DIAGNOSIS: Right great toe osteomyelitis OPERATION: Right great toe amputation at the level of the MTP joint ANESTHESIA: MAC IMPLANTS: none TOURNIQUET TIME: Less than 30 minutes with an ankle Esmarch tourniquet. SPECIMENS: Toe to pathology. Culture swabs and bone sent to microbiology. ESTIMATED BLOOD LOSS: minimal COMPLICATIONS: none STATUS: Stable from the operating room to the recovery room. INDICATIONS FOR PROCEDURE: Izabella sustained a right great toe fracture and developed an infection and osteomyelitis. Both operative and non operative treatment alternatives were reviewed. Further, the nature and risks of surgery were reviewed in careful detail. Our discussions regarding the risks of surgery included, but were not limited to, wound infection, wound problems, persistent or worsening infection, nerve injury, neuroma, RSD, persistent symptoms, blood clot, persistent or worsening infection, failure of the surgery, need for further amputation, and even the remote chance of catastrophic complication, including loss of limb. DESCRIPTION OF PROCEDURE: The patient was seen in the preoperative holding unit and informed written consent was obtained. The appropriate extremity was marked. The patient was then brought to the operating room and carefully positioned on the operating room table. Anesthesia was induced. All bony prominences were padded with great care. A chlorhexidine based pre-scrub was performed followed by a chloraprep prep and drape in standard sterile fashion. A surgical safety pause was then conducted in which we confirmed the appropriate patient, extremity, planned procedure, availability of equipment, indication and administration of antibiotics, and DVT prophylaxis in the form of a compression boot on the non- surgical extremity. I began with application of an ankle Esmarch tourniquet. Care was taken not to compress the infected toe. I then made an incision to remove the distal aspect of the toe. I maintained as much healthy soft-tissue length as was possible. The phalanges were dissected out and the toe was amputated at the level of the MTP joint. The bone was of terrible quality. The toe was then sent to pathology. Cultures were also sent. The remaining soft tissues were healthy appearing. There was no purulence expressed from more proximal. We then irrigated copiously after removing the ankle Esmarch tourniquet. The skin edges were pink. We closed with 3-0 monocryl and then 3-0 nylon and then placed a sterile dressing. The patient was then awakened from anesthesia and transferred to the recovery room in stable condition. There were no complications. All needle and sponge counts were correct at the end of the case. ATTESTATION: I attest I was present and scrubbed and performed the critical portions of the procedure myself. POSTOPERATIVE PLAN: The patient may be heel weight-bearing in a post-operative shoe and will follow up will be in two weeks for a wound check, but we will likely leave the sutures in for 3 weeks. Antibiotic treatment will be guided by the infectious disease service.
[2017-10-19] MEDS ORDERED: NS 0.9% 500 ML* 500 ML IV ONE (22:46)
[2017-10-20 05:36] LABS: Hematocrit 28 % (35-47); Hemoglobin 9.7 g/dl (12.0-16.0); Mean Platelet Volume 7.6 um3 (7.4-10.4); Platelet Count 137 10^3/ul (150-450)
[2017-10-20 05:39] LABS: EGFR Non-African American 42.6 (>60)
[2017-10-20] MEDS: Insulin LISPRO* 1 UNITS UNIT SUBCUT SCH ×4 (07:03→21:09)
[2017-10-20] MEDS: Famotidine TAB* 20 MG PO SCH (08:32)
[2017-10-20] MEDS: Metoclopramide TAB* 10 MG PO SCH ×4 (08:32→20:57)
[2017-10-20] MEDS: Sertraline* 100 MG TAB PO SCH (08:32)
[2017-10-20] MEDS: Cyanocobalamin TAB* 500 MCG PO SCH (08:32)
--- NOTE | 2017-10-20 08:34 | RAD ---
INDICATION: The patient is status post right great toe amputation COMPARISON: Foot radiograph dated September 10, 2017 that demonstrates moderate calcified atherosclerosis of the visualized right foot arteries. TECHNIQUE: Ankle-brachial indices and Doppler tracings were obtained of the lower extremities bilaterally. Volume pulse recordings were acquired at the bilateral ankles. REPORT: Ankle-brachial indices: Right: Value (SBP) Index Brachial: 153 Posterior tibialis: 217 1.4 Dorsalis pedis: 211 1.36 Left: Value (SBP) Index Brachial: 155 Posterior tibialis: 208 1.34 Dorsalis pedis: 191 1.23 Digit: Non-compressible Doppler waveforms (acquired at rest): In the interrogated lower extremity arteries, Doppler waveforms are triphasic in all distributions. Volume pulse recordings (acquired at rest): Volume pulse recordings, measured at the bilateral ankles, measure 43 mm on the right and 33 mm in the left IMPRESSION: The elevated ABIs ranging from 1.2-1.4 are most likely spuriously elevated due to calcified atherosclerosis that can be visualized on the foot radiograph dated September 10, 2017. Nevertheless, near normal arterial waveforms are recorded bilaterally which would indicate complete occlusion to be unlikely. If there is strong clinical concern for lower extremity arterial insufficiency superior noninvasive characterization of the arteries could be made with lower extremity arterial duplex sonography.
[2017-10-20] MEDS: Calcitriol CAP* 0.25 MCG PO SCH (08:36)
[2017-10-20] MEDS: CMC:Doxepin (NF) 25 MG CAP PO SCH (08:36)
--- NOTE | 2017-10-20 08:56 | PN ---
Subjective Date of Service: 10/20/17 Interval History: Patient was seen and examined at bedside. Reports feeling very well, eating her breakfast. Denies any foot pain, nausea, vomiting, chest pain or SOB. Just returned from an AB index vascular study, results pending at this time. She has no complaints today. Family History: Unchanged from Admission Social History: Unchanged from Admission Past Medical History: Unchanged from Admission Objective Active Medications: Acetaminophen (Tylenol Tab*) 650 mg PO Q6H PRN PRN Reason: PAIN OR TEMPERATURE Calcitriol (Rocaltrol Cap*) 0.5 mcg PO DAILY [facility] Last Admin: 10/20/17 08:36 Dose: 0.5 mcg Cyanocobalamin (Vitamin B12 Tab*) 250 mcg PO DAILY [facility] Last Admin: 10/20/17 08:32 Dose: 250 mcg Dextrose (D50w Syringe 50 Ml*) 12.5 gm IV PUSH .FOR FS < 60 - SS PRN PRN Reason: FS < 60 Diphenhydramine HCl (Benadryl Iv*) 25 mg IV Q6H PRN PRN Reason: PRURITIS Doxepin HCl (Doxepin (Nf)) 50 mg PO DAILY [facility] Last Admin: 10/20/17 08:36 Dose: 50 mg Famotidine (Pepcid Tab*) 20 mg PO DAILY [facility] Last Admin: 10/20/17 08:32 Dose: 20 mg Heparin Sodium (Porcine) (Heparin Vial(*)) 5,000 units SUBCUT Q8H [facility] Ceftriaxone Sodium 2 gm/ (Sodium Chloride) 100 mls @ 200 mls/hr IVPB Q24H [facility] Last Admin: 10/19/17 18:14 Dose: 200 mls/hr Lactated Ringer's (Lactated Ringers 1000 Ml Bag*) 1,000 mls @ 75 mls/hr IV PER RATE [facility] Last Admin: 10/19/17 05:44 Dose: 75 mls/hr Insulin Human Lispro (Humalog*) 0 units SUBCUT ACHS [facility]; Protocol Last Admin: 10/20/17 07:03 Dose: Not Given Metoclopramide HCl (Reglan Tab*) 5 mg PO QID [facility] Last Admin: 10/20/17 08:32 Dose: 5 mg Morphine Sulfate (Morphine Inj ((Syringe))*) 2 mg IV Q4H PRN PRN Reason: PAIN - SEVERE Last Admin: 10/19/17 14:19 Dose: 2 mg Morphine Sulfate (Morphine Inj ((Syringe))*) 2 mg IV Q2H PRN PRN Reason: PAIN - SEVERE Ondansetron HCl (Zofran Inj*) 4 mg IV Q6H PRN PRN Reason: NAUSEA Last Admin: 10/18/17 10:06 Dose: 4 mg Oxycodone/Acetaminophen (Percocet 5/325 Tab*) 1 tab PO Q4H PRN PRN Reason: PAIN Sertraline HCl (Zoloft*) 150 mg PO DAILY [facility] Last Admin: 10/20/17 08:32 Dose: 150 mg Vital Signs - 8 hr 10/20/17 10/20/17 04:59 05:00 Temperature 97.4 F 97.4 F Pulse Rate 89 Respiratory 16 Rate Blood Pressure 134/69 (mmHg) O2 Sat by Pulse 100 Oximetry Oxygen Devices in Use Now: None Appearance: Sitting up eating breakfast in bed. Appears comfortable and in NAD. Eyes: No Scleral Icterus, PERRLA Ears/Nose/Mouth/Throat: Clear Oropharnyx, Mucous Membranes Moist Neck: NL Appearance and Movements; NL JVP, Trachea Midline Respiratory: Symmetrical Chest Expansion and Respiratory Effort, Clear to Auscultation Cardiovascular: NL Sounds; No Murmurs; No JVD, RRR Abdominal: NL Sounds; No Tenderness; No Distention Extremities: No Edema Skin: No Rash or Ulcers Neurological: Alert and Oriented x 3 Nutrition: Taking PO's Result Diagrams: 10/20/17 05:14 10/20/17 05:14 Additional Lab and Data: . Microbiology and Other Data: . Diagnostic Imaging: . EKG Data: . Assess/Plan/Problems-Billing Assessment: A 67 y/o female with PMH HTN, DM, anxiety and gastroparesis, who was admitted from orthopedic office with right great toe osteomylitis, POD#1 s/p right great toe amputation, clinically stable and doing well. - Patient Problems (1) Foot osteomyelitis, right Current Visit: Yes Status: Acute Comment: - Management per orthopedic team - ID consult appreciated, continue IV antibiotics - PT eval and treatment starting today - Await final tissue cultures to determine outpatient antibiotic therapy options. (2) Hypertension Current Visit: Yes Status: Acute Comment: - Has been hypotensive on admission, without tachycardia or other evidence of sepsis - BP improving - BP meds on hold for now (3) Diabetes mellitus Current Visit: Yes Status: Acute Comment: - Continue Lispro coverage per sliding scale (4) Anxiety Current Visit: Yes Status: Acute Comment: - Continue Zoloft (5) Gastroparesis Current Visit: Yes Status: Acute Comment: - Continue Reglan and Zofran as needed. - Stable (6) DVT prophylaxis Current Visit: Yes Status: Acute Comment: - SubQ Heparin, on hold past midnight for surgery - Resumed post-op (7) Full code status Current Visit: Yes Status: Acute Status and Disposition: Inpatient. Anticipate discharge per ortho team later today or tomorrow.
--- NOTE | 2017-10-20 10:11 | PN ---
Progress Note - Progress Note Date of Service: 10/20/17 SOAP: Subjective: [Pt seen lying in bed. States that she is doing well. Pain is minimal. She denies any chest pain, SOB, nausea, vomiting, ] Objective: [General: A&O x3. NAD MSK, RLE: Dressing is clean dry and intact. Exposed toes have full sensation to light touch. +df/pf. no calf pain or tenderness. ] Vital Signs Temp 98.3 F 10/20/17 08:34 Pulse 83 10/20/17 08:34 Resp 18 10/20/17 08:40 BP 160/85 10/20/17 08:34 Pulse Ox 100 10/20/17 08:34 Intake & Output 10/19/17 10/20/17 10/20/17 18:59 06:59 18:59 Intake Total 967 510 240 Output Total 700 1850 400 Balance 267 -1340 -160 Intake: IV Fluids 967 LR 467 NS 100ML, Ceftriaxone 2G 100 lr 400 Oral 0 510 240 Output: Urine 700 1850 400 Other: # Bowel Movements 0 0 Assessment: [POD 1 Right great toe amputation at the MTP joint ] Plan: [Continue with current pain medication Await cultures and infectious disease consult ]
[2017-10-20] MEDS: Heparin VIAL(*) 5000 UNITS/ML VIAL (FIVE THOUSAND) SUBCUT SCH ×2 (12:31→20:56)
[2017-10-20] MEDS: cefTRIAXone(*) 2 GM in NS 0.9% 100 ML* 100 ML IVPB SCH (16:56)
[2017-10-20] MEDS: oxyCODONE/Acetamin 5/325 MG* TAB PO PRN (21:08)
[2017-10-21] MEDS: Heparin VIAL(*) 5000 UNITS/ML VIAL (FIVE THOUSAND) SUBCUT SCH ×3 (04:25→22:00)
[2017-10-21] MEDS: Insulin LISPRO* 1 UNITS UNIT SUBCUT SCH ×4 (07:53→21:49)
[2017-10-21] MEDS: Calcitriol CAP* 0.25 MCG PO SCH (08:30)
[2017-10-21] MEDS: Metoclopramide TAB* 10 MG PO SCH ×4 (08:30→21:59)
[2017-10-21] MEDS: Famotidine TAB* 20 MG PO SCH (08:30)
[2017-10-21] MEDS: Sertraline* 100 MG TAB PO SCH (08:30)
[2017-10-21] MEDS: CMC:Doxepin (NF) 25 MG CAP PO SCH (08:30)
[2017-10-21] MEDS: Cyanocobalamin TAB* 500 MCG PO SCH (08:30)
--- NOTE | 2017-10-21 10:12 | PN ---
Subjective Date of Service: 10/21/17 Interval History: Patient seen and examined. States she is feeling well. Ambulating with walker in PT, denies SOB, no chest pain, no fevers or chills. Tolerating meals. Family History: Unchanged from Admission Social History: Unchanged from Admission Past Medical History: Unchanged from Admission Objective Active Medications: Acetaminophen (Tylenol Tab*) 650 mg PO Q6H PRN PRN Reason: PAIN OR TEMPERATURE Calcitriol (Rocaltrol Cap*) 0.5 mcg PO DAILY [facility] Last Admin: 10/21/17 08:30 Dose: 0.5 mcg Cyanocobalamin (Vitamin B12 Tab*) 250 mcg PO DAILY [facility] Last Admin: 10/21/17 08:30 Dose: 250 mcg Dextrose (D50w Syringe 50 Ml*) 12.5 gm IV PUSH .FOR FS < 60 - SS PRN PRN Reason: FS < 60 Diphenhydramine HCl (Benadryl Iv*) 25 mg IV Q6H PRN PRN Reason: PRURITIS Doxepin HCl (Doxepin (Nf)) 50 mg PO DAILY [facility] Last Admin: 10/21/17 08:30 Dose: 50 mg Famotidine (Pepcid Tab*) 20 mg PO DAILY [facility] Last Admin: 10/21/17 08:30 Dose: 20 mg Heparin Sodium (Porcine) (Heparin Vial(*)) 5,000 units SUBCUT Q8H [facility] Last Admin: 10/21/17 04:25 Dose: 5,000 units Ceftriaxone Sodium 2 gm/ (Sodium Chloride) 100 mls @ 200 mls/hr IVPB Q24H [facility] Last Admin: 10/20/17 16:56 Dose: 200 mls/hr Lactated Ringer's (Lactated Ringers 1000 Ml Bag*) 1,000 mls @ 75 mls/hr IV PER RATE [facility] Last Admin: 10/19/17 05:44 Dose: 75 mls/hr Insulin Human Lispro (Humalog*) 0 units SUBCUT ACHS [facility]; Protocol Last Admin: 10/21/17 07:53 Dose: Not Given Metoclopramide HCl (Reglan Tab*) 5 mg PO QID [facility] Last Admin: 10/21/17 08:30 Dose: 5 mg Morphine Sulfate (Morphine Inj ((Syringe))*) 2 mg IV Q4H PRN PRN Reason: PAIN - SEVERE Last Admin: 10/19/17 14:19 Dose: 2 mg Morphine Sulfate (Morphine Inj ((Syringe))*) 2 mg IV Q2H PRN PRN Reason: PAIN - SEVERE Ondansetron HCl (Zofran Inj*) 4 mg IV Q6H PRN PRN Reason: NAUSEA Last Admin: 10/18/17 10:06 Dose: 4 mg Oxycodone/Acetaminophen (Percocet 5/325 Tab*) 1 tab PO Q4H PRN PRN Reason: PAIN Last Admin: 10/20/17 21:08 Dose: 1 tab Sertraline HCl (Zoloft*) 150 mg PO DAILY [facility] Last Admin: 10/21/17 08:30 Dose: 150 mg Vital Signs - 8 hr 10/21/17 10/21/17 10/21/17 03:51 07:33 07:50 Temperature 98.0 F 98.2 F Pulse Rate 76 73 Respiratory 16 16 18 Rate Blood Pressure 120/66 139/77 (mmHg) O2 Sat by Pulse 97 99 99 Oximetry Oxygen Devices in Use Now: None Appearance: Alert, NAD Eyes: No Scleral Icterus, PERRLA Ears/Nose/Mouth/Throat: NL Teeth, Lips, Gums, Clear Oropharnyx Neck: NL Appearance and Movements; NL JVP, Trachea Midline Respiratory: Symmetrical Chest Expansion and Respiratory Effort, Clear to Auscultation Cardiovascular: NL Sounds; No Murmurs; No JVD, RRR Abdominal: NL Sounds; No Tenderness; No Distention Extremities: - - dressing right foot CDI Neurological: Alert and Oriented x 3, NL Sensation Nutrition: Taking PO's Result Diagrams: 10/20/17 05:14 10/20/17 05:14 Additional Lab and Data: . Microbiology and Other Data: . Diagnostic Imaging: . EKG Data: . Assess/Plan/Problems-Billing Assessment: This is a 67 y/o female with PMH HTN, DM, anxiety and gastroparesis, who was admitted from orthopedic office with right great toe osteomylitis, currently s/ p right great toe amputation. - Patient Problems (1) Foot osteomyelitis, right Code(s): M86.9 - OSTEOMYELITIS, UNSPECIFIED SNOMED Code(s): 2962857398169971 Comment: - Likely 2/2 peripheral neuropathy/DM - POD2 right great toe amputation - POC as per orthopedics - Pain control, bowel regimen - OOB with PT/OT - Antibiotics as per ID (2) Anxiety Code(s): F41.9 - ANXIETY DISORDER, UNSPECIFIED SNOMED Code(s): 78290564 Comment: - Continue Zoloft daily (3) Diabetes mellitus Code(s): E11.9 - TYPE 2 DIABETES MELLITUS WITHOUT COMPLICATIONS SNOMED Code(s) : 15305351 Comment: - Continue Lispro coverage per sliding scale, BG stable (4) Gastroparesis Code(s): K31.84 - GASTROPARESIS SNOMED Code(s): 494633762 Comment: - Continue Reglan and Zofran PRN - Stable, tolerating meals (5) Hypertension Code(s): I10 - ESSENTIAL (PRIMARY) HYPERTENSION SNOMED Code(s): 13583334 Comment: - Has been hypotensive on admission, without tachycardia or other evidence of sepsis - Hold BP meds for now and continue to monitor (6) DVT prophylaxis Code(s): XAD0439 - SNOMED Code(s): 459964981 Comment: - HSQ (7) Full code status Code(s): Z78.9 - OTHER SPECIFIED HEALTH STATUS SNOMED Code(s): 000180582 Status and Disposition: Dispo as per ortho.
[2017-10-21] MEDS: cefTRIAXone(*) 2 GM in NS 0.9% 100 ML* 100 ML IVPB SCH (17:12)
--- NOTE | 2017-10-21 19:45 | PN ---
Progress Note - Progress Note Date of Service: 10/21/17 SOAP: Subjective: Pt sitting comfortably in chair. No complaint of pain. No new c/o. Denies F/C, N /V. Vital Signs: Temp Pulse Resp BP Pulse Ox 98.7 F 76 16 106/54 96 10/21/17 16:04 10/21/17 16:04 10/21/17 16:04 10/21/17 16:04 10/21/17 16:04 Laboratory Last Values WBC 6.0 10^3/ul (3.5-10.8) 10/19/17 05:41 RBC 3.25 10^6/ul (4.00-5.40) L 10/19/17 05:41 Hgb 9.7 g/dl (12.0-16.0) L 10/20/17 05:14 Hct 28 % (35-47) L 10/20/17 05:14 MCV 86 fL (80-97) 10/19/17 05:41 MCH 30 pg (27-31) 10/19/17 05:41 MCHC 35 g/dl (31-36) 10/19/17 05:41 RDW 14 % (10.5-15) 10/19/17 05:41 Plt Count 137 10^3/ul (150-450) L 10/20/17 05:14 MPV 7.6 um3 (7.4-10.4) 10/20/17 05:14 Neut % (Auto) 52.1 % (38-83) 10/19/17 05:41 Lymph % (Auto) 35.4 % (25-47) 10/19/17 05:41 Giles % (Auto) 6.3 % (0-7) 10/19/17 05:41 Eos % (Auto) 5.8 % (0-6) 10/19/17 05:41 Baso % (Auto) 0.4 % (0-2) 10/19/17 05:41 Absolute Neuts (auto) 3.1 10^3/ul (1.5-7.7) 10/19/17 05:41 Absolute Lymphs (auto) 2.1 10^3/ul (1.0-4.8) 10/19/17 05:41 Absolute Monos (auto) 0.4 10^3/ul (0-0.8) 10/19/17 05:41 Absolute Eos (auto) 0.3 10^3/ul (0-0.6) 10/19/17 05:41 Absolute Basos (auto) 0 10^3/ul (0-0.2) 10/19/17 05:41 Absolute Nucleated RBC 0 10^3/ul 10/19/17 05:41 Nucleated RBC % 0 10/19/17 05:41 ESR 0 mm/Hr (0-40) 10/17/17 17:02 INR (Anticoag Therapy) 0.82 (0.77-1.02) 10/19/17 05:41 Sodium 139 mmol/L (135-145) 10/20/17 05:14 Potassium 4.5 mmol/L (3.5-5.0) 10/20/17 05:14 Chloride 109 mmol/L (101-111) 10/20/17 05:14 Carbon Dioxide 24 mmol/L (22-32) 10/20/17 05:14 Anion Gap 6 mmol/L (2-11) 10/20/17 05:14 BUN 21 mg/dL (6-24) 10/20/17 05:14 Creatinine 1.26 mg/dL (0.51-0.95) H 10/20/17 05:14 Est GFR ( Amer) 51.6 (>60) 10/20/17 05:14 Est GFR (Non-Af Amer) 42.6 (>60) 10/20/17 05:14 BUN/Creatinine Ratio 16.7 (8-20) 10/20/17 05:14 Glucose 98 mg/dL (70-100) 10/20/17 05:14 POC Glucose (mg/dL) 102 mg/dL (70-100) H 10/21/17 11:59 Calcium 8.3 mg/dL (8.6-10.3) L 10/20/17 05:14 Total Bilirubin 0.90 mg/dL (0.2-1.0) 10/17/17 17:02 AST 15 U/L (13-39) 10/17/17 17:02 ALT 12 U/L (7-52) 10/17/17 17:02 Alkaline Phosphatase 69 U/L (34-104) 10/17/17 17:02 C-Reactive Protein < 1.00 mg/L (<8.01) 10/17/17 17:02 Total Protein 6.1 g/dL (6.4-8.9) L 10/17/17 17:02 Albumin 3.7 g/dL (3.2-5.2) 10/17/17 17:02 Globulin 2.4 g/dL (2-4) 10/17/17 17:02 Albumin/Globulin Ratio 1.5 (1-3) 10/17/17 17:02 Objective: Dressing C/D/I, NVI Assessment: s/p right great toe AMP POD#2 Plan: Pain control continue Abx - Appreciate ID input
[2017-10-21] MEDS: oxyCODONE/Acetamin 5/325 MG* TAB PO PRN (21:59)
[2017-10-22] MEDS: Heparin VIAL(*) 5000 UNITS/ML VIAL (FIVE THOUSAND) SUBCUT SCH ×3 (06:41→21:19)
[2017-10-22] MEDS: Insulin LISPRO* 1 UNITS UNIT SUBCUT SCH ×4 (08:28→21:19)
[2017-10-22] MEDS ORDERED: Polyethylene Glycol 3350* 17 GM PACKET PO PRN (08:36)
[2017-10-22] MEDS: Famotidine TAB* 20 MG PO SCH (09:22)
[2017-10-22] MEDS: Calcitriol CAP* 0.25 MCG PO SCH (09:22)
[2017-10-22] MEDS: Cyanocobalamin TAB* 500 MCG PO SCH (09:22)
[2017-10-22] MEDS: Sertraline* 100 MG TAB PO SCH (09:22)
[2017-10-22] MEDS: CMC:Doxepin (NF) 25 MG CAP PO SCH (09:23)
[2017-10-22] MEDS: Docusate CAP* 100 MG PO SCH ×2 (09:23→21:17)
[2017-10-22] MEDS: Metoclopramide TAB* 10 MG PO SCH ×4 (09:26→21:18)
--- NOTE | 2017-10-22 10:10 | PN ---
Progress Note - Progress Note Date of Service: 10/22/17 SOAP: Subjective: Pt seen lying in bed. States that she is doing well. Pain is minimal. She denies any chest pain, SOB, nausea, vomiting, ] Objective: [General: A&O x3. NAD MSK, RLE: Dressing is clean dry and intact. Exposed toes have full sensation to light touch. +df/pf. no calf pain or tenderness. ] Vital Signs Temp 98.2 F 10/22/17 07:50 Pulse 77 10/22/17 07:50 Resp 16 10/22/17 08:00 BP 126/72 10/22/17 07:50 Pulse Ox 99 10/22/17 07:50 Intake & Output 10/21/17 10/22/17 10/22/17 18:59 06:59 18:59 Intake Total 1120 850 Output Total 550 500 Balance 570 350 Intake: Oral 1120 850 Output: Urine 550 500 Assessment: [POD 3 Right great toe amputation at the MTP joint ] Plan: [Continue with current pain medication Await cultures to guide treatment Pt has stage 3 kidney disease
--- NOTE | 2017-10-22 12:42 | PN ---
Subjective Date of Service: 10/22/17 Interval History: Patient seen and examined. Just woke up, appears sleepy but appropriate. States pain is well controlled and she is ambulating. c/o constipation. Denies SOb, no chest pain, no fevers or chills. Family History: Unchanged from Admission Social History: Unchanged from Admission Past Medical History: Unchanged from Admission Objective Active Medications: Acetaminophen (Tylenol Tab*) 650 mg PO Q6H PRN PRN Reason: PAIN OR TEMPERATURE Calcitriol (Rocaltrol Cap*) 0.5 mcg PO DAILY [facility] Last Admin: 10/22/17 09:22 Dose: 0.5 mcg Cyanocobalamin (Vitamin B12 Tab*) 250 mcg PO DAILY [facility] Last Admin: 10/22/17 09:22 Dose: 250 mcg Dextrose (D50w Syringe 50 Ml*) 12.5 gm IV PUSH .FOR FS < 60 - SS PRN PRN Reason: FS < 60 Diphenhydramine HCl (Benadryl Iv*) 25 mg IV Q6H PRN PRN Reason: PRURITIS Docusate Sodium (Colace Cap*) 100 mg PO BID [facility] Last Admin: 10/22/17 09:23 Dose: 100 mg Doxepin HCl (Doxepin (Nf)) 50 mg PO DAILY [facility] Last Admin: 10/22/17 09:23 Dose: 50 mg Famotidine (Pepcid Tab*) 20 mg PO DAILY [facility] Last Admin: 10/22/17 09:22 Dose: 20 mg Heparin Sodium (Porcine) (Heparin Vial(*)) 5,000 units SUBCUT Q8HR [facility] Last Admin: 10/22/17 06:41 Dose: 5,000 units Ceftriaxone Sodium 2 gm/ (Sodium Chloride) 100 mls @ 200 mls/hr IVPB Q24H [facility] Stop: 10/22/17 16:59 Last Admin: 10/21/17 17:12 Dose: 200 mls/hr Lactated Ringer's (Lactated Ringers 1000 Ml Bag*) 1,000 mls @ 75 mls/hr IV PER RATE [facility] Last Admin: 10/19/17 05:44 Dose: 75 mls/hr Ceftriaxone Sodium 2 gm/ (Sodium Chloride) 50 mls @ 100 mls/hr IVPB Q24H [facility] Insulin Human Lispro (Humalog*) 0 units SUBCUT ACHS [facility]; Protocol Last Admin: 10/22/17 11:31 Dose: Not Given Metoclopramide HCl (Reglan Tab*) 5 mg PO QID [facility] Last Admin: 10/22/17 09:26 Dose: 5 mg Morphine Sulfate (Morphine Inj ((Syringe))*) 2 mg IV Q4H PRN PRN Reason: PAIN - SEVERE Last Admin: 10/19/17 14:19 Dose: 2 mg Morphine Sulfate (Morphine Inj ((Syringe))*) 2 mg IV Q2H PRN PRN Reason: PAIN - SEVERE Ondansetron HCl (Zofran Inj*) 4 mg IV Q6H PRN PRN Reason: NAUSEA Last Admin: 10/18/17 10:06 Dose: 4 mg Oxycodone/Acetaminophen (Percocet 5/325 Tab*) 1 tab PO Q4H PRN PRN Reason: PAIN Last Admin: 10/21/17 21:59 Dose: 1 tab Polyethylene Glycol/Electrolytes (Miralax*) 17 gm PO DAILY PRN PRN Reason: CONSTIPATION Last Admin: 10/22/17 09:21 Dose: 17 gm Sertraline HCl (Zoloft*) 150 mg PO DAILY [facility] Last Admin: 10/22/17 09:22 Dose: 150 mg Vital Signs - 8 hr 10/22/17 10/22/17 07:50 08:00 Temperature 98.2 F Pulse Rate 77 Respiratory 14 16 Rate Blood Pressure 126/72 (mmHg) O2 Sat by Pulse 99 Oximetry Oxygen Devices in Use Now: None Appearance: alert, NAD Eyes: No Scleral Icterus, PERRLA Ears/Nose/Mouth/Throat: NL Teeth, Lips, Gums, Mucous Membranes Moist Neck: NL Appearance and Movements; NL JVP, Trachea Midline Respiratory: Symmetrical Chest Expansion and Respiratory Effort, Clear to Auscultation Cardiovascular: NL Sounds; No Murmurs; No JVD, RRR, No Edema Abdominal: NL Sounds; No Tenderness; No Distention Extremities: No Edema Skin: No Rash or Ulcers, No Nodules or Sclerosis, - - dressing CDI Neurological: Alert and Oriented x 3, NL Sensation, NL Muscle Strength and Tone Nutrition: Taking PO's Result Diagrams: 10/20/17 05:14 10/20/17 05:14 Additional Lab and Data: . Microbiology and Other Data: . Diagnostic Imaging: . EKG Data: . Assess/Plan/Problems-Billing Assessment: This is a 67 y/o female with PMH HTN, DM, anxiety and gastroparesis, who was admitted from orthopedic office with right great toe osteomylitis, currently s/ p right great toe amputation. - Patient Problems (1) Foot osteomyelitis, right Code(s): M86.9 - OSTEOMYELITIS, UNSPECIFIED SNOMED Code(s): 2540806441333695 Comment: - Likely 2/2 peripheral neuropathy/DM - POD3 right great toe amputation - POC as per orthopedics - Pain control, bowel regimen - OOB with PT/OT - Antibiotics as per ID, currently ceftriaxone, wound cultures with no significant growth (2) Anxiety Code(s): F41.9 - ANXIETY DISORDER, UNSPECIFIED SNOMED Code(s): 16005671 Comment: - Continue Zoloft daily (3) Diabetes mellitus Code(s): E11.9 - TYPE 2 DIABETES MELLITUS WITHOUT COMPLICATIONS SNOMED Code(s) : 93879888 Comment: - Continue Lispro coverage per sliding scale, BG stable (4) Gastroparesis Code(s): K31.84 - GASTROPARESIS SNOMED Code(s): 697450462 Comment: - Continue Reglan and Zofran PRN - Stable, tolerating meals (5) Hypertension Code(s): I10 - ESSENTIAL (PRIMARY) HYPERTENSION SNOMED Code(s): 63303451 Comment: - Has been hypotensive on admission, without tachycardia or other evidence of sepsis - Normotensive today, can likely restart BP meds at discharge, or sooner if needed (6) DVT prophylaxis Code(s): TJE3875 - SNOMED Code(s): 859468218 Comment: - HSQ (7) Full code status Code(s): Z78.9 - OTHER SPECIFIED HEALTH STATUS SNOMED Code(s): 281225746 Status and Disposition: Dispo as per ortho.
[2017-10-22] MEDS: NS 0.9% IVPB SCH (16:59)
[2017-10-22] MEDS: CEFTRIAXONE IVPB SCH (16:59)
[2017-10-22] MEDS: oxyCODONE/Acetamin 5/325 MG* TAB PO PRN (21:17)
[2017-10-23] MEDS: Heparin VIAL(*) 5000 UNITS/ML VIAL (FIVE THOUSAND) SUBCUT SCH ×3 (06:08→20:58)
[2017-10-23] MEDS: Insulin LISPRO* 1 UNITS UNIT SUBCUT SCH ×4 (08:08→20:57)
[2017-10-23] MEDS: Famotidine TAB* 20 MG PO SCH (10:21)
[2017-10-23] MEDS: Sertraline* 100 MG TAB PO SCH (10:22)
[2017-10-23] MEDS: Metoclopramide TAB* 10 MG PO SCH ×4 (10:23→20:57)
[2017-10-23] MEDS: Docusate CAP* 100 MG PO SCH ×2 (10:23→20:57)
[2017-10-23] MEDS: Cyanocobalamin TAB* 500 MCG PO SCH (10:24)
[2017-10-23] MEDS: CMC:Doxepin (NF) 25 MG CAP PO SCH (10:25)
[2017-10-23] MEDS: Calcitriol CAP* 0.25 MCG PO SCH (10:26)
--- NOTE | 2017-10-23 10:29 | PN ---
Progress Note - Progress Note Date of Service: 10/23/17 SOAP: Subjective: Pt seen and examined at bedside. No complaint of pain. Denies CP, SOB, F/C. Vital Signs: Temp Pulse Resp BP Pulse Ox 98.2 F 70 16 137/77 98 10/23/17 07:12 10/23/17 07:12 10/23/17 07:12 10/23/17 07:12 10/23/17 07:12 Laboratory Last Values WBC 6.0 10^3/ul (3.5-10.8) 10/19/17 05:41 RBC 3.25 10^6/ul (4.00-5.40) L 10/19/17 05:41 Hgb 9.7 g/dl (12.0-16.0) L 10/20/17 05:14 Hct 28 % (35-47) L 10/20/17 05:14 MCV 86 fL (80-97) 10/19/17 05:41 MCH 30 pg (27-31) 10/19/17 05:41 MCHC 35 g/dl (31-36) 10/19/17 05:41 RDW 14 % (10.5-15) 10/19/17 05:41 Plt Count 137 10^3/ul (150-450) L 10/20/17 05:14 MPV 7.6 um3 (7.4-10.4) 10/20/17 05:14 Neut % (Auto) 52.1 % (38-83) 10/19/17 05:41 Lymph % (Auto) 35.4 % (25-47) 10/19/17 05:41 [place] % (Auto) 6.3 % (0-7) 10/19/17 05:41 Eos % (Auto) 5.8 % (0-6) 10/19/17 05:41 Baso % (Auto) 0.4 % (0-2) 10/19/17 05:41 Absolute Neuts (auto) 3.1 10^3/ul (1.5-7.7) 10/19/17 05:41 Absolute Lymphs (auto) 2.1 10^3/ul (1.0-4.8) 10/19/17 05:41 Absolute Monos (auto) 0.4 10^3/ul (0-0.8) 10/19/17 05:41 Absolute Eos (auto) 0.3 10^3/ul (0-0.6) 10/19/17 05:41 Absolute Basos (auto) 0 10^3/ul (0-0.2) 10/19/17 05:41 Absolute Nucleated RBC 0 10^3/ul 10/19/17 05:41 Nucleated RBC % 0 10/19/17 05:41 ESR 0 mm/Hr (0-40) 10/17/17 17:02 INR (Anticoag Therapy) 0.82 (0.77-1.02) 10/19/17 05:41 Sodium 139 mmol/L (135-145) 10/20/17 05:14 Potassium 4.5 mmol/L (3.5-5.0) 10/20/17 05:14 Chloride 109 mmol/L (101-111) 10/20/17 05:14 Carbon Dioxide 24 mmol/L (22-32) 10/20/17 05:14 Anion Gap 6 mmol/L (2-11) 10/20/17 05:14 BUN 21 mg/dL (6-24) 10/20/17 05:14 Creatinine 1.26 mg/dL (0.51-0.95) H 10/20/17 05:14 Est GFR ( Amer) 51.6 (>60) 10/20/17 05:14 Est GFR (Non-Af Amer) 42.6 (>60) 10/20/17 05:14 BUN/Creatinine Ratio 16.7 (8-20) 10/20/17 05:14 Glucose 98 mg/dL (70-100) 10/20/17 05:14 POC Glucose (mg/dL) 109 mg/dL (70-100) H 10/23/17 07:33 Calcium 8.3 mg/dL (8.6-10.3) L 10/20/17 05:14 Total Bilirubin 0.90 mg/dL (0.2-1.0) 10/17/17 17:02 AST 15 U/L (13-39) 10/17/17 17:02 ALT 12 U/L (7-52) 10/17/17 17:02 Alkaline Phosphatase 69 U/L (34-104) 10/17/17 17:02 C-Reactive Protein < 1.00 mg/L (<8.01) 10/17/17 17:02 Total Protein 6.1 g/dL (6.4-8.9) L 10/17/17 17:02 Albumin 3.7 g/dL (3.2-5.2) 10/17/17 17:02 Globulin 2.4 g/dL (2-4) 10/17/17 17:02 Albumin/Globulin Ratio 1.5 (1-3) 10/17/17 17:02 Objective: Dressing C/D/I. Calves soft, nontender. NVI Assessment: s/p Right great toe amp POD#4 Plan: OOB WBAT on heel Continue abx Pain control
--- NOTE | 2017-10-23 16:45 | PN ---
Subjective Date of Service: 10/23/17 Interval History: Patient seen and examined. Pain well tolerated, denies fevers or chills. No acute overnight events. Family History: Unchanged from Admission Social History: Unchanged from Admission Past Medical History: Unchanged from Admission Objective Active Medications: Acetaminophen (Tylenol Tab*) 650 mg PO Q6H PRN PRN Reason: PAIN OR TEMPERATURE Calcitriol (Rocaltrol Cap*) 0.5 mcg PO DAILY [facility] Last Admin: 10/23/17 10:26 Dose: 0.5 mcg Cyanocobalamin (Vitamin B12 Tab*) 250 mcg PO DAILY [facility] Last Admin: 10/23/17 10:24 Dose: 250 mcg Dextrose (D50w Syringe 50 Ml*) 12.5 gm IV PUSH .FOR FS < 60 - SS PRN PRN Reason: FS < 60 Diphenhydramine HCl (Benadryl Iv*) 25 mg IV Q6H PRN PRN Reason: PRURITIS Docusate Sodium (Colace Cap*) 100 mg PO BID [facility] Last Admin: 10/23/17 10:23 Dose: 100 mg Doxepin HCl (Doxepin (Nf)) 50 mg PO DAILY [facility] Last Admin: 10/23/17 10:25 Dose: 50 mg Famotidine (Pepcid Tab*) 20 mg PO DAILY [facility] Last Admin: 10/23/17 10:21 Dose: 20 mg Heparin Sodium (Porcine) (Heparin Vial(*)) 5,000 units SUBCUT Q8HR [facility] Last Admin: 10/23/17 13:24 Dose: 5,000 units Lactated Ringer's (Lactated Ringers 1000 Ml Bag*) 1,000 mls @ 75 mls/hr IV PER RATE [facility] Last Admin: 10/19/17 05:44 Dose: 75 mls/hr Ceftriaxone Sodium 2 gm/ (Sodium Chloride) 50 mls @ 100 mls/hr IVPB Q24H [facility] Last Admin: 10/22/17 16:59 Dose: 100 mls/hr Insulin Human Lispro (Humalog*) 0 units SUBCUT ACHS [facility]; Protocol Last Admin: 10/23/17 13:17 Dose: Not Given Metoclopramide HCl (Reglan Tab*) 5 mg PO QID [facility] Last Admin: 10/23/17 13:24 Dose: 5 mg Morphine Sulfate (Morphine Inj ((Syringe))*) 2 mg IV Q4H PRN PRN Reason: PAIN - SEVERE Last Admin: 10/19/17 14:19 Dose: 2 mg Morphine Sulfate (Morphine Inj ((Syringe))*) 2 mg IV Q2H PRN PRN Reason: PAIN - SEVERE Ondansetron HCl (Zofran Inj*) 4 mg IV Q6H PRN PRN Reason: NAUSEA Last Admin: 10/18/17 10:06 Dose: 4 mg Oxycodone/Acetaminophen (Percocet 5/325 Tab*) 1 tab PO Q4H PRN PRN Reason: PAIN Last Admin: 10/22/17 21:17 Dose: 1 tab Polyethylene Glycol/Electrolytes (Miralax*) 17 gm PO DAILY PRN PRN Reason: CONSTIPATION Last Admin: 10/22/17 09:21 Dose: 17 gm Sertraline HCl (Zoloft*) 150 mg PO DAILY [facility] Last Admin: 10/23/17 10:22 Dose: 150 mg Vital Signs - 8 hr 10/23/17 11:19 Temperature 98.0 F Pulse Rate 76 Respiratory 14 Rate Blood Pressure 120/75 (mmHg) O2 Sat by Pulse 100 Oximetry Oxygen Devices in Use Now: None Appearance: alert, NAD Eyes: No Scleral Icterus, PERRLA Ears/Nose/Mouth/Throat: NL Teeth, Lips, Gums Neck: NL Appearance and Movements; NL JVP, Trachea Midline Respiratory: Symmetrical Chest Expansion and Respiratory Effort, Clear to Auscultation Cardiovascular: NL Sounds; No Murmurs; No JVD, RRR, No Edema Extremities: No Edema, No Clubbing, Cyanosis Neurological: Alert and Oriented x 3, NL Sensation Nutrition: Taking PO's Result Diagrams: 10/20/17 05:14 10/20/17 05:14 Additional Lab and Data: . Microbiology and Other Data: . Diagnostic Imaging: . EKG Data: . Assess/Plan/Problems-Billing Assessment: This is a 67 y/o female with PMH HTN, DM, anxiety and gastroparesis, who was admitted from orthopedic office with right great toe osteomylitis, currently s/ p right great toe amputation. - Patient Problems (1) Foot osteomyelitis, right Code(s): M86.9 - OSTEOMYELITIS, UNSPECIFIED SNOMED Code(s): 2579887936300873 Comment: - Likely 2/2 peripheral neuropathy/DM - POD4 right great toe amputation - POC as per orthopedics - Pain control, bowel regimen - OOB with PT/OT - Antibiotics as per ID, currently ceftriaxone, wound cultures with no significant growth, will defer to ID for continued antibiotics at discharge (2) Anxiety Code(s): F41.9 - ANXIETY DISORDER, UNSPECIFIED SNOMED Code(s): 68225029 Comment: - Continue Zoloft daily (3) Diabetes mellitus Code(s): E11.9 - TYPE 2 DIABETES MELLITUS WITHOUT COMPLICATIONS SNOMED Code(s) : 70223709 Comment: - Continue Lispro coverage per sliding scale, BG stable (4) Gastroparesis Code(s): K31.84 - GASTROPARESIS SNOMED Code(s): 823649797 Comment: - Continue Reglan and Zofran PRN - Stable, tolerating meals (5) Hypertension Code(s): I10 - ESSENTIAL (PRIMARY) HYPERTENSION SNOMED Code(s): 96368474 Comment: - BP stable, may restart meds at discharge. (6) DVT prophylaxis Code(s): GMG1371 - SNOMED Code(s): 805190806 Comment: - HSQ (7) Full code status Code(s): Z78.9 - OTHER SPECIFIED HEALTH STATUS SNOMED Code(s): 403493786 Status and Disposition: Dispo as per ortho and ID, appreciate input.
[2017-10-23] MEDS: NS 0.9% IVPB SCH (16:55)
[2017-10-23] MEDS: CEFTRIAXONE IVPB SCH (16:55)
[2017-10-23] MEDS: oxyCODONE/Acetamin 5/325 MG* TAB PO PRN (20:51)
[2017-10-24] MEDS: Heparin VIAL(*) 5000 UNITS/ML VIAL (FIVE THOUSAND) SUBCUT SCH (06:07)
[2017-10-24] MEDS: Insulin LISPRO* 1 UNITS UNIT SUBCUT SCH (07:24)
[2017-10-24] MEDS: Calcitriol CAP* 0.25 MCG PO SCH (09:14)
[2017-10-24] MEDS: Docusate CAP* 100 MG PO SCH (09:15)
[2017-10-24] MEDS: Cyanocobalamin TAB* 500 MCG PO SCH (09:15)
[2017-10-24] MEDS: Sertraline* 100 MG TAB PO SCH (09:16)
[2017-10-24] MEDS: Famotidine TAB* 20 MG PO SCH (09:16)
[2017-10-24] MEDS: Metoclopramide TAB* 10 MG PO SCH (09:17)
[2017-10-24] MEDS: CMC:Doxepin (NF) 25 MG CAP PO SCH (09:17)
--- NOTE | 2017-10-24 10:37 | PN ---
Progress Note - Progress Note Date of Service: 10/24/17 SOAP: Subjective: []Patient seen at bedside. She feels well without right foot pain, fever, chills , CP, SOB, nausea or dizziness. Objective: []General: Well appearing, NAD RLE: Dressing changed, incision C/D/I with well approximated wound edges and no surrounding or proximally tracking erythema. Sensation intact, cap refill brisk distally. DP 2+. Calves soft, nontender. Assessment: s/p Right great toe amp Plan: OOB WBAT on heel Continue abx, currently on ceftriaxone with no growth on culture. Will await ID recommendations then DC. Vital Signs Temp 98.3 F 10/24/17 07:11 Pulse 69 10/24/17 07:11 Resp 17 10/24/17 07:11 BP 132/73 10/24/17 07:11 Pulse Ox 98 10/24/17 07:11 Intake & Output 10/23/17 10/24/17 10/24/17 18:59 06:59 18:59 Intake Total 1635 1340 Output Total 600 Balance 1035 1340 Intake: IV Fluids 20 NS (0.9%) 20 IVPB 55 ABX - CEFTRIAXONE 55 Oral 1560 1340 Output: Urine 600 Other: Estimated Void Small Medium Date of Last Bowel 10/23/17 Movement # Bowel Movements 1 0 Estimated Stool Amount Small # Voids 2 Laboratory Last Values WBC 6.0 10^3/ul (3.5-10.8) 10/19/17 05:41 RBC 3.25 10^6/ul (4.00-5.40) L 10/19/17 05:41 Hgb 9.7 g/dl (12.0-16.0) L 10/20/17 05:14 Hct 28 % (35-47) L 10/20/17 05:14 MCV 86 fL (80-97) 10/19/17 05:41 MCH 30 pg (27-31) 10/19/17 05:41 MCHC 35 g/dl (31-36) 10/19/17 05:41 RDW 14 % (10.5-15) 10/19/17 05:41 Plt Count 137 10^3/ul (150-450) L 10/20/17 05:14 MPV 7.6 um3 (7.4-10.4) 10/20/17 05:14 Neut % (Auto) 52.1 % (38-83) 10/19/17 05:41 Lymph % (Auto) 35.4 % (25-47) 10/19/17 05:41 [place] % (Auto) 6.3 % (0-7) 10/19/17 05:41 Eos % (Auto) 5.8 % (0-6) 10/19/17 05:41 Baso % (Auto) 0.4 % (0-2) 10/19/17 05:41 Absolute Neuts (auto) 3.1 10^3/ul (1.5-7.7) 10/19/17 05:41 Absolute Lymphs (auto) 2.1 10^3/ul (1.0-4.8) 10/19/17 05:41 Absolute Monos (auto) 0.4 10^3/ul (0-0.8) 10/19/17 05:41 Absolute Eos (auto) 0.3 10^3/ul (0-0.6) 10/19/17 05:41 Absolute Basos (auto) 0 10^3/ul (0-0.2) 10/19/17 05:41 Absolute Nucleated RBC 0 10^3/ul 10/19/17 05:41 Nucleated RBC % 0 10/19/17 05:41 ESR 0 mm/Hr (0-40) 10/17/17 17:02 INR (Anticoag Therapy) 0.82 (0.77-1.02) 10/19/17 05:41 Sodium 139 mmol/L (135-145) 10/20/17 05:14 Potassium 4.5 mmol/L (3.5-5.0) 10/20/17 05:14 Chloride 109 mmol/L (101-111) 10/20/17 05:14 Carbon Dioxide 24 mmol/L (22-32) 10/20/17 05:14 Anion Gap 6 mmol/L (2-11) 10/20/17 05:14 BUN 21 mg/dL (6-24) 10/20/17 05:14 Creatinine 1.26 mg/dL (0.51-0.95) H 10/20/17 05:14 Est GFR ( Amer) 51.6 (>60) 10/20/17 05:14 Est GFR (Non-Af Amer) 42.6 (>60) 10/20/17 05:14 BUN/Creatinine Ratio 16.7 (8-20) 10/20/17 05:14 Glucose 98 mg/dL (70-100) 10/20/17 05:14 POC Glucose (mg/dL) 97 mg/dL (70-100) 10/24/17 07:18 Calcium 8.3 mg/dL (8.6-10.3) L 10/20/17 05:14 Total Bilirubin 0.90 mg/dL (0.2-1.0) 10/17/17 17:02 AST 15 U/L (13-39) 10/17/17 17:02 ALT 12 U/L (7-52) 10/17/17 17:02 Alkaline Phosphatase 69 U/L (34-104) 10/17/17 17:02 C-Reactive Protein < 1.00 mg/L (<8.01) 10/17/17 17:02 Total Protein 6.1 g/dL (6.4-8.9) L 10/17/17 17:02 Albumin 3.7 g/dL (3.2-5.2) 10/17/17 17:02 Globulin 2.4 g/dL (2-4) 10/17/17 17:02 Albumin/Globulin Ratio 1.5 (1-3) 10/17/17 17:02
[2017-10-24 12:11] VITALS: BP 142/76
[2017-10-24] MEDS ORDERED: DOXYcycline CAP(*) 100 MG PO SCH (21:00)
--- NOTE | 2017-10-25 22:10 | DS ---
DISCHARGE SUMMARY: DATE OF ADMISSION: 10/17/17 DATE OF DISCHARGE: 10/24/17 DATE OF SURGERY: 10/19/17 PROVIDER: Jimenez Shanks MD * (DICTATED BY CRUZ REYES) EXPLOSIVE OPERATOR FUSE: CRUZ Fernández PREOP DIAGNOSIS: Right great toe osteomyelitis. OPERATIVE PROCEDURE: Right great toe amputation at the level of the MTP joint. HISTORY: Ms. Pack sustained a right great toe fracture and developed an infection and osteomyelitis after review of operative and nonoperative treatment alternatives, as she elected to undergo a right great toe amputation at the level of the MTP joint. HOSPITAL COURSE: The patient was admitted to [facility] on . She underwent a right great toe amputation at the level of the MTP joint without complication. During the surgery, cultures were taken with no growth on wound culture reports. The patient was on IV ceftriaxone during this stay and on 10/24/17, she was deemed medically and orthopedically stable for discharge to home. Her dressing was changed. Incision was clean, dry, and intact with well approximated wounds edges and no surrounding or proximally tracking erythema, sensation was intact distally and capillary refill brisk distally, DP pulse 2+. Per recommendation of Infectious Disease, the patient will be discharged on doxycycline 100 mg p.o. b.i.d. for 14 days. DISCHARGE MEDICATIONS: Continue home medications. New medications included: 1. Acetaminophen 650 mg p.o. q.6 hours p.r.n. 2. Docusate 100 mg p.o. b.i.d. p.r.n. 3. Doxycycline 100 mg p.o. b.i.d. for 14 days. 4. Percocet 5/325 one to three tablets every 4 to 6 hours as needed for pain, max daily dose of 3. DISCHARGE PLAN: Heel weightbearing on the surgical side. Keep your dressing clean, dry, and intact. Call and make a followup appointment with Dr. Shanks next week between 10/30/17 to 11/03/17, sooner with any concerns. Call office right away for increased pain, redness, drainage, fever, or concerns with the surgical incision. Go to the emergency room with chest pain or shortness of breath. Antibiotics; doxycycline 100 mg p.o. by mouth every 12 hours for 2 weeks. Percocet 5/325 by mouth every 4 hours as needed for pain. CRUZ REYES [id number]/[facility] #: [id number] [facility]
== END 2017-10-24 14:30 | disposition home or self-care (01) | DRG 617 ==
LOC: SSU 16:02
PROVIDERS: ADMIT Orthopaedic Surgery; ATTEND Orthopaedic Surgery
PROC: 0Y6M0Z9 Detachment at Right Foot, Partial 1st Ray, Open Approach (ICD-10-PCS; principal; 2017-10-19 15:00)
DX: E11.69 Type 2 diabetes mellitus with other specified complication (principal); M86.9 Osteomyelitis, unspecified; F41.9 Anxiety disorder, unspecified; E11.42 Type 2 diabetes mellitus with diabetic polyneuropathy; E11.43 Type 2 diabetes mellitus with diabetic autonomic (poly)neuropathy; E11.22 Type 2 diabetes mellitus with diabetic chronic kidney disease; K31.84 Gastroparesis; I12.9 Hypertensive chronic kidney disease with stage 1 through stage 4 chronic kidney disease, or unspecified chronic kidney disease; N18.9 Chronic kidney disease, unspecified; K21.9 Gastro-esophageal reflux disease without esophagitis; F32.9 Major depressive disorder, single episode, unspecified; Z79.1 Long term (current) use of non-steroidal anti-inflammatories (NSAID); Z79.4 Long term (current) use of insulin; Z79.891 Long term (current) use of opiate analgesic; Z79.899 Other long term (current) drug therapy
CPT/HCPCS: 36415; 71046; 80048; 80053; 85014; 85018; 85025; 85049; 85610; 85652; 86140; 87070; 87073; 87205; 87640; 87641; 88305; 88311; 93005; 93922; A9270-GY; G8978-GP-CI; G8979-GP-CI; J0696; J1644; J1885; J2250; J2270; J2405; J2704; J3010; J3490

== ENCOUNTER 2018-07-03 13:46 | Emergency (ER) | payer MEDICARE, MEDICAID ==
[2018-07-03 13:51] VITALS: BP 0/0
--- NOTE | 2018-07-03 14:00 | ED ---
HPI Cardiac - HPI Summary HPI Summary: Patient is a 68 y/o F presenting to ED via EMS for cardiac arrest. EMS reports that the patient was found to be unresponsive on the toilet by family members in her hotel room, EMS was called. EMS states that they carried out ACLS, chest compressions were done, epinephrine was given, last round three minutes ACTUARIAL MANAGER. Provider in room immediately to evaluate upon patient's arrival at 1344. - History of Current Complaint Chief Complaint: EDCardiacArrest Stated Complaint: CARDIC ARREST Hx Obtained From: EMS Hx From Patient Unobtainable Due To: Extremis - Level 5 caveat due to unresponsiveness, extremis. Onset/Duration: Still Present Timing: Constant Pain Intensity: 0 Character: Other: - cardiac arrest Aggravating Factor(s): Nothing Alleviating Factor(s): Nothing Associated Signs and Symptoms: Positive: Other: - cardiac arrest, unresponsive - Additional Pertinent History Primary Care Physician: ANNELIESE - Allergy/Home Medications Allergies/Adverse Reactions: Allergies Allergy/AdvReac Type Severity Reaction Status Date / Time No Known Allergies Allergy Verified 04/23/18 11:09 PMH/Surg Hx/FS Hx/Imm Hx Endocrine/Hematology History: Reports: Hx Diabetes Cardiovascular History: Reports: Hx Hypertension Denies: Hx Pacemaker/ICD Respiratory History: Reports: Hx Asthma, Hx Seasonal Allergies GI History: Reports: Hx Gall Bladder Disease - choleycystectomy, Other GI Disorders - Gastroparesis History: Reports: Hx Chronic Renal Failure - CKD stage 3, Hx Renal Disease, Other Problems/Disorders - CKD Musculoskeletal History: Reports: Hx Arthritis - neck, Other Musculoskeletal History - osteomylitis R great toe Sensory History: Reports: Hx Contacts or Glasses Denies: Hx Hearing Aid Opthamlomology History: Reports: Hx Contacts or Glasses Neurological History: Reports: Hx Peripheral Neuropathy, Other Neuro Impairments /Disorders - Alzheimer's Dx Psychiatric History: Reports: Hx Depression Denies: Hx Panic Disorder - Cancer History Cancer Type, Location and Year: THYROID Hx Chemotherapy: No - Surgical History Surgery Procedure, Year, and Place: GALLBLADDER REMOVAL;. TUBAL LIGATION;. BILATERAL CATARACTS; Hx Anesthesia Reactions: No Infectious Disease History: No Infectious Disease History: Denies: Traveled Outside the [place] in Last 30 Days - Family History Known Family History: Positive: Hypertension, Diabetes, Other - Cancer - Social History Alcohol Use: None Hx Substance Use: Yes Substance Use Type: Reports: Marijuana Smoking Status (MU): Former Smoker Type: Cigarettes Review of Systems - ROS Summary Review of Systems Summary: Level 5 caveat due to unresponsiveness, extremis. Cardiovascular: Other - POSITIVE - ASYSTOLE, CARDIAC ARREST Neurological: Other - POSITIVE - UNRESPONSIVE All Other Systems Reviewed And Are Negative: No - Comments Additional Review of Systems Comments: Level 5 caveat due to unresponsiveness, extremis. Physical Exam - Summary Physical Exam Summary: Appearance: Unresponsive, CPR in progress Skin: Warm, dry, no obvious rash Eyes: sclera anicteric, no conjunctival pallor ENT: mucous membranes moist, pharynx appears normal, ventilated by BVM Neck: Supple, nontender Respiratory: No respiratory effort Cardiovascular: No pulses palpable Abdomen: Soft Musculoskeletal: No signs of trauma Neurological: unresponsive Psychiatric: deferred Triage Information Reviewed: Yes Vital Signs On Initial Exam: Initial Vitals Temp Pulse Resp BP Pulse Ox 0 F 0 0 0/0 0 07/03/18 13:48 07/03/18 13:48 07/03/18 13:48 07/03/18 13:48 07/03/18 13:48 Vital Signs Reviewed: Yes Diagnostics - Vital Signs Vital Signs Temp Pulse Resp BP Pulse Ox 07/03/18 13:48 0 F 0 0 0/0 0 - Laboratory Lab Statement: Any lab studies that have been ordered have been reviewed, and results considered in the medical decision making process. - Ultrasound No standard instances Ultrasound Interpretation Completed By: ED Physician Summary of Ultrasound Findings: Bedside US showed cardiac standstill. Re-Evaluation - Re-Evaluation First Eval Re-Evaluation Time: 14:24 Comment: Patient's certificate completed through [facility]. Disposition - Course Course Of Treatment: Patient is a 68 y/o F presenting to ED via EMS for cardiac arrest. EMS reports that the patient was found to be unresponsive on the toilet by family, EMS was called. EMS states that they carried out ACLS, chest compressions were done, epinephrine was given, last round three minutes ACTUARIAL MANAGER. Upon arrival, patient was noted to be asystole on the monitor, bedside US revealed cardiac standstill. ABC alert was paged overhead at 1340, EMS arrived at 1344 with provider in room immediately upon the patient's arrival. Patient was declared at 1347. Patient's family was present in the waiting room, they were informed of the patient's status and comforted. Family reported that the patient had been experiencing chest pain earlier. Patient's certificate completed through [facility]. - Diagnoses Provider Diagnoses: Myocardial infarction During the Visit The Following Alert/Code Occurred: ABC Alert - ABC alert was paged overhead at 1340, EMS arrived at 1344 with provider in room immediately upon the patient's arrival. Patient was declared at 1347. Discharge - Sign-Out/Discharge Documenting (check all that apply): Patient Departure - Patient Received Moderate/Deep Sedation with Procedure: No - Discharge Plan Condition: Disposition: Referrals: Elyssa Young NP [Primary Care Provider] - - Billing Disposition and Condition Condition: Disposition: - Attestation Statements Document Initiated by Trey: Yes Documenting Gabinoibe: LIA ROTH Provider For Whom Trey is Documenting (Include Credential): MIRELLA FRIEDMNA MD Scribe Attestation: LIA Romero, scribed for MIRELLA FRIEDMAN MD on 07/03/18 at 2050. Scribe Documentation Reviewed: Yes Provider Attestation: The documentation as recorded by the LIA kelly accurately reflects the service I personally performed and the decisions made by me, MIRELLA FRIEDMAN MD Status of Scribe Document: Viewed
== END 2018-07-03 13:53 | disposition expired ==
LOC: ED 13:46
DX: I46.9 Cardiac arrest, cause unspecified (principal); E11.9 Type 2 diabetes mellitus without complications; I10 Essential (primary) hypertension; Z87.891 Personal history of nicotine dependence; E11.22 Type 2 diabetes mellitus with diabetic chronic kidney disease; I12.9 Hypertensive chronic kidney disease with stage 1 through stage 4 chronic kidney disease, or unspecified chronic kidney disease; N18.3 Chronic kidney disease, stage 3 (moderate); Z85.850 Personal history of malignant neoplasm of thyroid
CPT/HCPCS: 99285